=== PATIENT | male | born 1980 | race Caucasian/White ===

== ENCOUNTER → 2020-08-26 | Outpatient (CLI) | payer SELFPAY ==
[2020-08-26 12:39] LABS: Basophils % (A) 1 %; Eosinophils # (A) 0.1 k/uL (0-0.7); Eosinophils % (A) 1 %; HCT 34.8 % (39.0-53.0); HGB 11.7 gm/dL (13.0-17.5); Lymphocytes # (A) 0.9 k/uL (1.0-4.8); Lymphocytes % (A) 23 %; MCH 32.6 pg (25.0-35.0); MCHC 33.6 g/dL (31.0-37.0); MCV 96.8 fL (80.0-100.0); Mean Platelet Volume 8.5; Monocytes # (A) 0.4 k/uL (0-1.0); Monocytes % (A) 10 %; Neutrophils # (A) 2.6 k/uL (1.3-7.7); Neutrophils % (A) 63 %; RBC 3.59 m/uL (4.30-5.90); RDW 12.6 % (11.5-15.5); WBC 4.1 k/uL (3.8-10.6)
[2020-08-26 13:24] LABS: Platelet Count 67 k/uL (150-450)
[2020-08-26 13:25] LABS: Anisocytosis (M) Present; Poikilocytosis (M) Present
[2020-08-26 13:47] LABS: Erythrocyte Sedimentation Rate 35 mm/hr (0-15)
[2020-08-26 15:14] LABS: ALT 60 U/L (4-49); AST 122 U/L (17-59); African American GFR (CKD) >90 (>60 ml/min/1.73 sqM); Albumin 4.3 g/dL (3.5-5.0); Albumin/Globulin Ratio 1.1; Alkaline Phosphatase 90 U/L (38-126); Anion Gap 8 mmol/L; Blood Urea Nitrogen 10 mg/dL (9-20); C Reactive Protein <5.0 mg/L (<10.0); Carbon Dioxide 27 mmol/L (22-30); Chloride 98 mmol/L (98-107); Globulin 3.8 g/dL; Glucose 107 mg/dL (74-99); Non-African American GFR(CKD) >90 (>60 ml/min/1.73 sqM); Potassium 4.6 mmol/L (3.5-5.1); Sodium 133 mmol/L (137-145); Total Bilirubin 0.7 mg/dL (0.2-1.3); Total Protein 8.1 g/dL (6.3-8.2)
[2020-08-26 19:03] LABS: Rheumatoid Factor, Qnt 18 IU/mL (0-15)
[2020-08-26 21:05] LABS: Total Protein,CSF 56 mg/dL (12-60)
[2020-08-26 21:39] LABS: Appearance,CSF Clear; CSF Tube Number 4; Nucleated Cells, CSF 2 u/L (0-5); Red Blood Cell,CSF 1 u/L (0-10)
[2020-09-02 08:37] LABS: IgG - CSF 4.4 mg/dL (0.0 - 3.4); IgG/Albumin Index (CSF) 0.53 (0.00 - 0.77)
== END | disposition home or self-care (01) ==
LOC: LABWHC1 11:14
PROVIDERS: ATTEND Psychiatry & Neurology Pain Medicine
DX: G62.9 Polyneuropathy, unspecified (principal); G61.81 Chronic inflammatory demyelinating polyneuritis; G37.9 Demyelinating disease of central nervous system, unspecified
CPT/HCPCS: 36415; 80053; 82040; 82042; 82784; 83873; 83916; 84157; 85025; 85652; 86038; 86140; 86431; 87801; 88108; 89050

== ENCOUNTER → 2021-10-13 | Outpatient (CLI) | payer OTHER ==
--- NOTE | 2021-10-13 12:23 | US ---
EXAMINATION TYPE: US venous doppler duplex LE BI DATE OF EXAM: 10/13/2021 12:01 PM COMPARISON: NONE CLINICAL HISTORY: 41-year-old male M79.89 LEG SWELLING. Bilateral swelling for the past 4 day, more o n the left SIDE PERFORMED: Bilateral TECHNIQUE: The lower extremity deep venous system is examined utilizing real time linear array sonog heather with graded compression, doppler sonography and color-flow sonography. FINDINGS: VESSELS IMAGED: Common Femoral Vein Deep Femoral Vein Greater Saphenous Vein * Femoral Vein Popliteal Vein Small Saphenous Vein * Proximal Calf Veins Posterior tibial veins (* superficial vessels) Right Leg: Negative for DVT Left Leg: Negative for DVT Multimedia Educational Specialist notes: No DVT seen. IMPRESSION: No evidence for DVT within the bilateral lower extremities.
--- NOTE | 2021-10-13 12:42 | XR ---
EXAMINATION TYPE: XR ankle complete LT, XR foot complete LT DATE OF EXAM: 10/13/2021 CLINICAL HISTORY: Swelling TECHNIQUE: Frontal, lateral and oblique images of the left ankle and foot are obtained. COMPARISON: None. FINDINGS: There is no acute fracture/dislocation evident in the left ankle. The ankle mortise appea rs within normal limits. Moderate diffuse subcutaneous edema and soft tissue swelling slightly more p rominent over the lateral malleolus versus medial malleolus is confirmed. There is no acute fracture or dislocation evident in the left foot. Old malunion fracture distal meta diaphysis fifth metatarsal. Joint spaces are maintained. Moderate size inferior calcaneal spur. Mild soft tissue swelling in the foot less prominent than at level of ankle. IMPRESSION: As above.
== END | disposition home or self-care (01) ==
LOC: RADUSWWP 11:14
PROVIDERS: ATTEND Internal Medicine
DX: R60.0 Localized edema (principal); M79.89 Other specified soft tissue disorders; M77.32 Calcaneal spur, left foot
CPT/HCPCS: 93970

== ENCOUNTER 2023-06-16 11:44 | Inpatient (IN) | payer OTHER ==
--- NOTE | 2023-06-16 12:43 | ED ---
Nausea/Vomiting/Diarrhea HPI - General Chief complaint: Nausea/Vomiting/Diarrhea Stated complaint: Vomiting Time Seen by Provider: 06/16/23 12:30 Source: patient, RN notes reviewed Mode of arrival: wheelchair Limitations: no limitations - History of Present Illness Initial comments: 43-year-old male presents emergency Department chief complaint abdominal pain. Patient states patient states that he states has some upper abdominal discomfort, nausea vomiting diarrhea over the last few days. Patient family states he is not eating much the last week he is a known alcoholic and used to drink. He denies any prior liver or pancreatic issues. Denies any melanotic stools. Patient denies any focal weakness he states he just has generalized weakness. - Related Data Allergies Allergy/AdvReac Type Severity Reaction Status Date / Time No Known Allergies Allergy Verified 06/16/23 12:12 Review of Systems ROS Statement: Those systems with pertinent positive or pertinent negative responses have been documented in the HPI. ROS Other: All systems not noted in ROS Statement are negative. Past Medical History Past Medical History: Hypertension Additional Past Medical History / Comment(s): neuropathy Past Surgical History: No Surgical Hx Reported Past Psychological History: No Psychological Hx Reported Past Alcohol Use History: Abuse Past Drug Use History: None Reported General Exam - General Exam Comments Initial Comments: Visual Physical Exam Vital signs reviewed General: Well-appearing, nontoxic, no acute distress. Head: Normocephalic, atraumatic Eyes: PERRLA, EOMI ENT: Airway patent Chest: Nonlabored breathing Skin: No visual rash, normal skin tone Neuro: Alert and oriented 3 Musculoskeletal: No gross abnormalities Limitations: no limitations General appearance: alert, in no apparent distress Head exam: Present: atraumatic, normocephalic, normal inspection Eye exam: Present: normal appearance, PERRL, EOMI. Absent: scleral icterus, conjunctival injection, periorbital swelling ENT exam: Present: normal exam, normal oropharynx, mucous membranes moist Neck exam: Present: normal inspection, full ROM. Absent: tenderness, meningismus, lymphadenopathy Respiratory exam: Present: normal lung sounds bilaterally. Absent: respiratory distress, wheezes, rales, rhonchi, stridor Cardiovascular Exam: Present: normal rhythm, tachycardia, normal heart sounds. Absent: systolic murmur, diastolic murmur, rubs, gallop, clicks GI/Abdominal exam: Present: soft, normal bowel sounds. Absent: distended, tenderness, guarding, rebound, rigid Course Vital Signs 06/16/23 12:10 Temperature 97.8 F Pulse Rate 116 H Respiratory 20 Rate Blood Pressure 133/67 O2 Sat by Pulse 99 Oximetry Medical Decision Making - Medical Decision Making I performed a quick note portion of this chart signed Afshin Kahn PA-C Was pt. sent in by a medical professional or institution (, [facility], [facility], urgent care, hospital, or fpc...) When possible be specific @ -No Did you speak to anyone other than the patient for history (EMS, parent, family, police, friend...)? What history was obtained from this source @ -No Did you review nursing and triage notes (agree or disagree)? Why? @ -I reviewed and agree with nursing and triage notes Were old charts reviewed (outside hosp., previous admission, EMS record, old EKG, old radiological studies, urgent care reports/EKG's, fpc records)? Report findings @ -No old charts were reviewed Differential Diagnosis (chest pain, altered mental status, abdominal pain women, abdominal pain men, vaginal bleeding, weakness, fever, dyspnea, syncope, headache, dizziness, GI bleed, back pain, seizure, CVA, palpatations, mental he alth, musculoskeletal)? @ -Differential Abdominal Pain Men: Appendicitis, cholecystitis, diverticulosis, ischemic bowel, pancreatitis, hepatitis, UTI, gastroenteritis, AAA, incarcerated hernia, bowel obstruction, constipation, inflammatory bowel, hepatitis, peptic ulcer disease, splenic infarction, perforated viscus, testicular torsion, this is not meant to be an all-inclusive list EKG interpreted by me (3pts min.). @ -None X-rays interpreted by me (1pt min.). @ -None done CT interpreted by me (1pt min.). @ -None done U/S interpreted by me (1pt. min.). @ -None done What testing was considered but not performed or refused? (CT, X-rays, U/S, labs)? Why? @ -None What meds were considered but not given or refused? Why? @ -None Did you discuss the management of the patient with other professionals (professionals i.e. , [facility], [facility], lab, RT, psych nurse, social staff worker, township clerk, teacher, geological technical officer, porter sample case)? Give summary @ -Dr. monsivais for consult of hyponatremia she recommended repeat laboratory paloma dies, she was to add urine studies. I discussed case with [facility] for admission Was smoking cessation discussed for >3mins.? @ -No Was critical care preformed (if so, how long)? @ -No Were there social determinants of health that impacted care today? How? (Homelessness, low income, unemployed, alcoholism, drug addiction, transportation, low edu. Level, literacy, decrease access to med. care, [facility], rehab)? @ -No Was there de-escalation of care discussed even if they declined (Discuss DNR or withdrawal of care, Hospice)? DNR status @ -No What co-morbidities impacted this encounter? (DM, HTN, Smoking, COPD, CAD, Cancer, CVA, ARF, Chemo, Hep., AIDS, mental health diagnosis, sleep apnea, morbid obesity)? @ -Alcoholism Was patient admitted / discharged? Hospital course, mention meds given and route, prescriptions, significant lab abnormalities, going to OR and other pertinent info. @ -Admitted patient is found to have significant hyponatremia with sodium of 113. Patient has no neurological deficits he does have denies weakness at this time. Patient states he is a daily beer drinker and patient may have some beer potomania. Patient was given initial normal saline bolus prior to labs or studies, pain is fluids were ordered at 50 mph I did contact nephrology patient will be admitted to medicine with repeat laboratory studies. Undiagnosed new problem with uncertain prognosis? @ -No Drug Therapy requiring intensive monitoring for toxicity (Heparin, Nitro, Insulin, Cardizem)? @ -No Were any procedures done? @ -No Diagnosis/symptom? @ -Hyponatremia, alcohol abuse Acute, or Chronic, or Acute on Chronic? @ -Acute Uncomplicated (without systemic symptoms) or Complicated (systemic symptoms)? @ -Complicated Side effects of treatment? @ -No Exacerbation, Progression, or Severe Exacerbation? @ -No Poses a threat to life or bodily function? How? (Chest pain, USA, ID, pneumonia, PE, COPD, DKA, ARF, appy, cholecystitis, CVA, Diverticulitis, Homicidal, Suicidal, threat to staff... and all critical care pts) @ -Yes patient has severe hyponatremia] - Lab Data Result diagrams: 06/16/23 12:32 06/16/23 13:03 Lab Results 06/16/23 06/16/23 Range/Units 12:32 13:03 WBC 7.3 (3.8-10.6) k/uL RBC 2.69 L (4.30-5.90) m/uL Hgb 8.7 L (13.0-17.5) gm/dL Hct 24.8 L (39.0-53.0) % MCV 92.4 (80.0-100.0) fL MCH 32.2 (25.0-35.0) pg MCHC 34.9 (31.0-37.0) g/dL RDW 12.5 (11.5-15.5) % Plt Count 134 L (150-450) k/uL MPV 9.3 Neutrophils % 82 % Lymphocytes % 8 % Monocytes % 8 % Eosinophils % 2 % Basophils % 0 % Neutrophils # 6.0 (1.3-7.7) k/uL Lymphocytes # 0.6 L (1.0-4.8) k/uL Monocytes # 0.6 (0-1.0) k/uL Eosinophils # 0.1 (0-0.7) k/uL Basophils # 0.0 (0-0.2) k/uL Sodium 113 L* (137-145) mmol/L Potassium 3.7 (3.5-5.1) mmol/L Chloride 80 L (98-107) mmol/L Carbon Dioxide 17 L (22-30) mmol/L Anion Gap 16 mmol/L BUN 11 (9-20) mg/dL Creatinine 0.55 L (0.66-1.25) mg/dL Est GFR (CKD-EPI)AfAm >90 (>60 ml/min/1.73 sqM) Est GFR (CKD-EPI)NonAf >90 (>60 ml/min/1.73 sqM) Glucose 87 (74-99) mg/dL Calcium 7.8 L (8.4-10.2) mg/dL Magnesium 1.8 (1.6-2.3) mg/dL Total Bilirubin 1.5 H (0.2-1.3) mg/dL AST 47 (17-59) U/L ALT 21 (4-49) U/L Alkaline Phosphatase 93 (38-126) U/L Total Protein 6.8 (6.3-8.2) g/dL Albumin 2.9 L (3.5-5.0) g/dL Lipase 241 (23-300) U/L Serum Alcohol 23 mg/dL Disposition Clinical Impression: Hyponatremia Disposition: ADMITTED IP TO THIS HOSP Condition: Serious Referrals: None,Stated [Primary Care Provider] - 1-2 days Time of Disposition: 16:05
[2023-06-16 12:57] LABS: Basophils % (A) 0 %; Eosinophils # (A) 0.1 k/uL (0-0.7); Eosinophils % (A) 2 %; HCT 24.8 % (39.0-53.0); HGB 8.7 gm/dL (13.0-17.5); Lymphocytes # (A) 0.6 k/uL (1.0-4.8); Lymphocytes % (A) 8 %; MCH 32.2 pg (25.0-35.0); MCHC 34.9 g/dL (31.0-37.0); MCV 92.4 fL (80.0-100.0); Mean Platelet Volume 9.3; Monocytes # (A) 0.6 k/uL (0-1.0); Monocytes % (A) 8 %; Neutrophils % (A) 82 %; Platelet Count 134 k/uL (150-450); RBC 2.69 m/uL (4.30-5.90); RDW 12.5 % (11.5-15.5); WBC 7.3 k/uL (3.8-10.6)
[2023-06-16] MEDS ORDERED: SODIUM CHLORIDE 0.9% 1,000 ML IV ONE (14:57)
[2023-06-16] MEDS ORDERED: PANTOPRAZOLE 40 MG/10 ML VIAL IVP STA (14:58)
[2023-06-16] MEDS ORDERED: ONDANSETRON 4 MG/2 ML VIAL IVP STA (14:58)
[2023-06-16 15:29] LABS: ALT 21 U/L (4-49); AST 47 U/L (17-59); African American GFR (CKD) >90 (>60 ml/min/1.73 sqM); Albumin 2.9 g/dL (3.5-5.0); Alcohol 23 mg/dL; Alkaline Phosphatase 93 U/L (38-126); Anion Gap 16 mmol/L; Blood Urea Nitrogen 11 mg/dL (9-20); Calcium 7.8 mg/dL (8.4-10.2); Carbon Dioxide 17 mmol/L (22-30); Chloride 80 mmol/L (98-107); Glucose 87 mg/dL (74-99); Lipase 241 U/L (23-300); Magnesium 1.8 mg/dL (1.6-2.3); Non-African American GFR(CKD) >90 (>60 ml/min/1.73 sqM); Potassium 3.7 mmol/L (3.5-5.1); Total Bilirubin 1.5 mg/dL (0.2-1.3); Total Protein 6.8 g/dL (6.3-8.2)
[2023-06-16 15:33] LABS: Sodium 113 mmol/L (137-145)
[2023-06-16] MEDS ORDERED: LORazepam 2 MG/ML INJ IV PRN ×3 (16:05)
[2023-06-16] MEDS ORDERED: NALOXONE 0.4 MG/ML 1 ML VIAL IV PRN (16:06)
[2023-06-16] MEDS: LORazepam 2 MG/ML INJ IV PRN (17:18)
[2023-06-16] MEDS: SODIUM CHLORIDE 0.9% 1,000 ML IV SCH (17:25)
[2023-06-16 22:02] LABS: African American GFR (CKD) >90 (>60 ml/min/1.73 sqM); Blood Urea Nitrogen 12 mg/dL (9-20); Calcium 7.7 mg/dL (8.4-10.2); Carbon Dioxide 15 mmol/L (22-30); Glucose 87 mg/dL (74-99); Non-African American GFR(CKD) >90 (>60 ml/min/1.73 sqM)
[2023-06-16 22:06] LABS: Anion Gap 17 mmol/L; Chloride 82 mmol/L (98-107)
[2023-06-16 22:12] LABS: Sodium 114 mmol/L (137-145)
[2023-06-17 04:05] LABS: African American GFR (CKD) >90 (>60 ml/min/1.73 sqM); Anion Gap 11 mmol/L; Blood Urea Nitrogen 13 mg/dL (9-20); Calcium 7.4 mg/dL (8.4-10.2); Carbon Dioxide 17 mmol/L (22-30); Chloride 85 mmol/L (98-107); Glucose 80 mg/dL (74-99); Non-African American GFR(CKD) >90 (>60 ml/min/1.73 sqM); Potassium 4.1 mmol/L (3.5-5.1)
[2023-06-17 04:21] LABS: Sodium 113 mmol/L (137-145)
--- NOTE | 2023-06-17 08:13 | P.HPIM ---
History of Present Illness This is a pleasant 43 years old male with past medical history of hypertension, alcohol use disorder. Patient told me he also he has history of neuropathy for 2 years is not walking much, he uses a wheelchair but he continues is also a walker to go around the house. However he let his and almost of daily living activities like shopping. Also reports history of fall about 2 years ago twice with fracture including his ankle. Patient also mentioned he has liver disease and he seemed Dr. Mo before. Presents because of nausea vomiting and diarrhea 4 days as per ED note however pt states he was having diarrhea of one day duration Patient stated that he ask his to bring him to the hospital because he could not eat for 1.5 day. He said also has diarrhea with loose stool, he said he has 2 bowel movements of diarrhea prior to come into the hospital. 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 And he denies liquor or wine consumption No urinary symptoms, no headache dizziness weakness or new numbness. No chest pain dyspnea or coughing. On exam his abdomen significantly distended and has bilateral leg swelling which is not very much pitting Vitals reviewed showing tachycardia with heart rate 112, a trial on the vitals are stable. Labs reviewed, CBC is unremarkable other than anemia with hemoglobin 8.7. Sodium was low on admission 113, then 114 and 113 this morning. Most of BMP and liver enzymes were unremarkable. Bilirubin is 1.5 but AST and ALT are normal range. Serum alcohol Review of Systems Review of systems CONSTITUTIONAL: No fever, no malaise, HEENT: No recent visual problems or hearing problems. Denied any sore throat. CARDIOVASCULAR: No orthopnea, PND, no palpitations, no syncope. PULMONARY: No shortness of breath, no cough, no hemoptysis. GASTROINTESTINAL: no nausea, no vomiting, no abdominal pain. Normoactive bowel sounds. NEUROLOGICAL: No headaches, no weakness, no numbness. HEMATOLOGICAL: Denies any bleeding or petechiae. GENITOURINARY: Denies any burning micturition, frequency, or urgency. MUSCULOSKELETAL/RHEUMATOLOGICAL: Denies any joint pain, swelling, or any muscle pain. ENDOCRINE: Denies any polyuria or polydipsia. Past Medical History Past Medical History: Hypertension Additional Past Medical History / Comment(s): neuropathy Past Surgical History: No Surgical Hx Reported Past Psychological History: No Psychological Hx Reported Past Alcohol Use History: Abuse Past Drug Use History: None Reported Medications and Allergies Home Medications Medication Instructions Recorded Confirmed Type Folic Acid 1 mg PO DAILY 06/16/23 06/16/23 History lisinopriL 40 mg PO DAILY 06/16/23 06/16/23 History prednisoLONE ACETATE 1% OPHTH 1 drop RIGHT EYE DAILY 06/16/23 06/16/23 History [Pred Forte 1%] Allergies Allergy/AdvReac Type Severity Reaction Status Date / Time No Known Allergies Allergy Verified 06/16/23 17:16 Physical Exam Vitals: Vital Signs Temp Pulse Resp BP Pulse Ox 06/17/23 05:00 112 H 19 122/77 06/17/23 04:00 108 H 16 112/81 06/17/23 03:00 113 H 19 119/73 06/17/23 02:00 104 H 16 123/99 95 06/17/23 01:00 96 12 105/54 96 06/17/23 00:00 104 H 17 114/97 06/16/23 23:00 115 H 20 101/75 06/16/23 22:00 101 H 20 101/75 95 06/16/23 21:00 17 101/75 98 06/16/23 20:00 105 H 17 101/75 06/16/23 19:00 112 H 19 101/75 06/16/23 18:00 104 H 17 101/75 06/16/23 17:22 96 18 101/75 100 06/16/23 17:00 103 H 14 06/16/23 16:48 101 H 19 06/16/23 12:10 97.8 F 116 H 20 133/67 99 Intake and Output 06/16/23 06/16/23 06/17/23 14:59 22:59 06:59 Other: Weight 87.543 kg -GENERAL: The patient is alert and oriented x3, not in any acute distress. Well developed, well nourished. Generally weak HEENT: Pupils are round and equally reacting to light. EOMI. No scleral icterus. No conjunctival pallor. Normocephalic, atraumatic. No pharyngeal erythema. No thyromegaly. CARDIOVASCULAR: S1 and S2 present. No murmurs, rubs, or gallops. PULMONARY: Chest is clear to auscultation, no wheezing , no crackles. -ABDOMEN: Soft, nontender, distended, normoactive bowel sounds. No palpable organomegaly. MUSCULOSKELETAL: No joint swelling or deformity. -EXTREMITIES: No cyanosis, clubbing, , bilateral leg edema. NEUROLOGICAL: Gross neurological examination did not reveal any focal deficits. SKIN: No rashes. no petechiae. Results CBC & Chem 7: 06/16/23 12:32 06/17/23 03:30 Labs: Abnormal Lab Results - Last 24 Hours (Table) 06/16/23 06/16/23 06/16/23 Range/Units 12:32 13:03 21:29 RBC 2.69 L (4.30-5.90) m/uL Hgb 8.7 L (13.0-17.5) gm/dL Hct 24.8 L (39.0-53.0) % Plt Count 134 L (150-450) k/uL Lymphocytes # 0.6 L (1.0-4.8) k/uL Sodium 113 L* 114 L* (137-145) mmol/L Chloride 80 L 82 L (98-107) mmol/L Carbon Dioxide 17 L 15 L (22-30) mmol/L Creatinine 0.55 L (0.66-1.25) mg/dL Osmolality 245 L* (280-301) mosm/kg Calcium 7.8 L 7.7 L (8.4-10.2) mg/dL Total Bilirubin 1.5 H (0.2-1.3) mg/dL Albumin 2.9 L (3.5-5.0) g/dL 06/17/23 Range/Units 03:30 RBC (4.30-5.90) m/uL Hgb (13.0-17.5) gm/dL Hct (39.0-53.0) % Plt Count (150-450) k/uL Lymphocytes # (1.0-4.8) k/uL Sodium 113 L* (137-145) mmol/L Chloride 85 L (98-107) mmol/L Carbon Dioxide 17 L (22-30) mmol/L Creatinine 0.57 L (0.66-1.25) mg/dL Osmolality (280-301) mosm/kg Calcium 7.4 L (8.4-10.2) mg/dL Total Bilirubin (0.2-1.3) mg/dL Albumin (3.5-5.0) g/dL Assessment and Plan Assessment: Severe hyponatremia, present on admission Acute gastroenteritis Alcohol use disorder arthroscopic on withdrawal Generalized weakness secondary to above Moderate to severe abdominal distention with bilateral leg swelling suspicious for ascites and fluid overload. Possible history of alcoholic liver disease, and possible cirrhosis. Hypertension Plan: continue with IV fluid hydration normal saline Monitor closely sodium level and correct gradually and slowly, nephrology team already consulted and they followed the patient closely [place] protocol and thiamine Check abdominal ultrasound GI consult Labs and medication were reviewed.. Continue same treatment. Continue with symptomatic treatment. Resume home medication. Monitor labs and vitals. DVT and GI prophylaxis. Further recommendations as per clinical course of the patient DVT prophylaxis: Subcutaneous heparin GI Prophylaxis: Ppi Prognosis is guarded
[2023-06-17] MEDS ORDERED: lisinopriL 20 MG TAB PO SCH (09:00)
--- NOTE | 2023-06-17 09:11 | US ---
EXAMINATION TYPE: US abdomen limited DATE OF EXAM: 06/17/2023 COMPARISON: NONE CLINICAL INDICATION: Male, 43 years old with history of ascites; Patient states he has never had flui d in his abdomen before. All four quadrants scanned with ascites visualized. FINDINGS/IMPRESSION: Moderate volume ascites throughout the abdomen.
[2023-06-17] MEDS: FOLIC ACID 1 MG TAB PO SCH (09:17)
[2023-06-17] MEDS: HEPARIN SODIUM,PORCINE 5,000 UNIT/ML 1 ML VIAL SQ SCH ×2 (09:17→21:25)
[2023-06-17] MEDS: THIAMINE 100 MG TAB PO SCH (09:37)
[2023-06-17] MEDS: prednisoLONE ACETATE 1% OPHTH DROPS 5 ML BTL RIGHT EYE SCH (09:38)
[2023-06-17 10:21] LABS: INR 1.2 (<1.2)
--- NOTE | 2023-06-17 11:09 | US ---
EXAMINATION TYPE: US liver DATE OF EXAM: 06/17/2023 COMPARISON: NONE CLINICAL INDICATION: Male, 43 years old with history of ascites, evaluate for cirrhosis; ascites cirr hosis limited due to fluid. TECHNIQUE: Multiple sonographic images of the right upper quadrant are obtained. FINDINGS: EXAM MEASUREMENTS: Liver Length: 17 cm Gallbladder Wall: .5 cm CBD: .6 cm Right Kidney: 10.1 x 4.3 x 4.0 cm DAIRY SPECIALIST NOTES: Pancreas: Obscured by bowel gas Liver: Increased attenuation Gallbladder: contracted Evidence for sonographic Sands's sign: no CBD: .6 Right Kidney: No hydronephrosis or masses seen Pancreas is obscured by overlying bowel gas. Liver demonstrates a subtle nodular contour with increas ed echogenicity. No focal lesion identified. Gallbladder is contracted without evidence of wall thick ening, cholelithiasis, or pericholecystic fluid. Per psychology teacher, negative sonographic Sands sign. C ommon bile duct at the upper limits of normal. Right kidney is unremarkable without evidence of hydro nephrosis, nephrolithiasis, or solid mass. Ascites demonstrated. IMPRESSION: 1. The liver demonstrates a cirrhotic morphology. 2. Ascites.
--- NOTE | 2023-06-17 12:12 | P.NPCON ---
History of Present Illness - Reason for Consult hyponatremia - History of Present Illness Patient is a 43-year-old male with history of EtOH abuse and hypertension. Patient is admitted to the hospital with history of increased weakness and abdominal distention. Patient has also had vomiting and diarrhea for about 3-4 days. Serum alcohol level of 23 No history of fever or chills No urinary symptoms 4 intake for last 3-4 days. No urinary symptoms Patient's aunt reports history of low sodium of about 5 years ago. Serum sodium was 113 on admission. Currently maintained on normal saline which was initially at 50 mL an hour and sodium had not improved. IV fluids were increased to 100 ML per hour and sodium is up to 117 today. Review of Systems As per HPI. Past Medical History Past Medical History: Hypertension Additional Past Medical History / Comment(s): neuropathy Past Surgical History: No Surgical Hx Reported Past Psychological History: No Psychological Hx Reported Past Alcohol Use History: Abuse Past Drug Use History: None Reported Medications and Allergies Home Medications Medication Instructions Recorded Confirmed Type Folic Acid 1 mg PO DAILY 06/16/23 06/16/23 History lisinopriL 40 mg PO DAILY 06/16/23 06/16/23 History prednisoLONE ACETATE 1% OPHTH 1 drop RIGHT EYE DAILY 06/16/23 06/16/23 History [Pred Forte 1%] Allergies Allergy/AdvReac Type Severity Reaction Status Date / Time No Known Allergies Allergy Verified 06/16/23 17:16 Physical Exam Vitals: Vital Signs Temp Pulse Pulse Resp BP BP Pulse Ox 06/17/23 11:56 97 16 121/82 100 06/17/23 11:41 105 H 16 122/77 99 06/17/23 11:00 104 H 16 128/107 98 06/17/23 05:00 112 H 19 122/77 06/17/23 04:00 108 H 16 112/81 06/17/23 03:00 113 H 19 119/73 06/17/23 02:00 104 H 16 123/99 95 06/17/23 01:00 96 12 105/54 96 06/17/23 00:00 104 H 17 114/97 06/16/23 23:00 115 H 20 101/75 06/16/23 22:00 101 H 20 101/75 95 06/16/23 21:00 17 101/75 98 06/16/23 20:00 105 H 17 101/75 06/16/23 19:00 112 H 19 101/75 06/16/23 18:00 104 H 17 101/75 06/16/23 17:22 96 18 101/75 100 06/16/23 17:00 103 H 14 06/16/23 16:48 101 H 19 06/16/23 12:10 97.8 F 116 H 20 133/67 99 Patient is awake, comfortable, no acute distress Examination of the heart S1 and S2 Examination of the lungs decreased breath sounds at the bases Abdomen is soft distended with ascites Examination of lower extremities shows edema 1+ bilaterally. Patient does not move his legs Results - Lab Results Most recent lab results Calcium 7.4 mg/dL (8.4-10.2) L 06/17/23 03:30 Magnesium 1.8 mg/dL (1.6-2.3) 06/16/23 13:03 06/16/23 12:32 06/17/23 08:32 Assessment and Plan Assessment: 1. Hyponatremia secondary to EtOH abuse. Component of hypovolemic hyponatremia as well. Urine osmolality and urine sodium is currently pending. Continue with normal saline for now. Patient is also encouraged increased intake of protein. 2. EtOH abuse with elevated bilirubin at 1.5 and INR of 1.2 3. Nausea and vomiting likely secondary to gastroenteritis or EtOH abuse 4. Ascites associated with portal hypertension from possible underlying alcoholic liver disease 5. History of neuropathy with bilateral leg weakness Plan: Continue with normal saline Follow-up on urine osmolality and urine sodium Repeat sodium later this afternoon Encouraged increased oral intake Thank you for the consultation. We will continue to follow the patient with you during his hospitalization.
--- NOTE | 2023-06-17 12:33 | US ---
Ultrasound-guided paracentesis. DATE OF EXAM: 06/17/2023 CLINICAL HISTORY: Ascites The procedure was discussed with the patient. The risks, complications, benefits, and alternatives we re discussed and any questions were answered. Informed consent was obtained. The patient was placed s upine on the ultrasound table and prepped and draped in the usual sterile fashion. All elements of maximal barrier technique were utilized. Under ultrasound guidance, access into the right lower quadrant was obtained, via the paracentesis catheter system and direct ultrasound guidanc e. Approximately 4.7 liters of straw-colored fluid was removed. The patient was stable throughout the pr ocedure and remained stable upon discharge from Department of Radiology. IMPRESSION: Successful paracentesis under ultrasound guidance.
--- NOTE | 2023-06-17 12:36 | P.CONS ---
History of Present Illness - Reason for Consult Consult date: 06/17/23 Possible alcoholic liver disease Requesting physician: Schuyler E Sheet - Chief Complaint Nausea, vomiting, diarrhea - History of Present Illness This is a 43-year-old male with a past medical history of alcohol abuse, peripheral neuropathy and hypertension who presented to the emergency department for complaints of nausea vomiting and diarrhea 1 week. He denies any other sick contacts. Denies any abdominal pain. States he's had abdominal distention for the last week or 2. states it has been longer. Also has lower extremity swelling. He had a limited abdominal ultrasound to evaluate for ascites. Moderate amount of ascites noted. Gastroenterology consulted for ascites, possible alcoholic cirrhosis of the liver. Patient states that he has a long-standing history of alcohol abuse. States he drank 8-10 beers a day for last 10-12 years. States lately he has only been drinking 3 beers a day. States he has neuropathy to bilateral feet due to previous accident and broken legs. He denies any black stool or blood in his stool, no hematemesis. Denies any previous knowledge of liver disease. He has been afebrile. Denies any fevers or chills at home. He did have a blood alcohol level on admission of 23. Patient noted to be hyponatremic on admission, with consult to nephrology. Admitting labs WBC 7.3 hemoglobin 8.7 hematocrit 24 platelet count 134,019 or 1.2 sodium 114 potassium 4.0 BUN 12 creatinine 0.6 magnesium 1.8 total bilirubin 1.5 AST 47 AST 21 alkaline phosphatase 93 lipase 241 Review of Systems REVIEW OF SYSTEMS: CARDIOPULMONARY: No chest pain or shortness of breath. Gastrointestinal: No abdominal pain, abdominal distention reported. Nausea vomiting and diarrhea for 1 week duration. No hematemesis, coffee-ground emesis. No rectal bleeding, or melena. GENITOURINARY: No dysuria or hematuria. MUSCULOSKELETAL: Reports normal range of motion., Joint pain to bilateral legs. Peripheral neuropathy. SKIN: No rashes. No jaundice. ENDOCRINE: No chills, fevers. No excessive weight gain or loss. No polydipsia or polyuria. PSYCHIATRIC: Unremarkable. NEUROLOGY: No change in mental status. Denies dizziness, headache. ENT: Vision unremarkable. CONSTITUTIONAL: No recent weight loss. No fever, chills, night sweats. Past Medical History Past Medical History: Hypertension Additional Past Medical History / Comment(s): neuropathy Past Surgical History: No Surgical Hx Reported Past Psychological History: No Psychological Hx Reported Past Alcohol Use History: Abuse Past Drug Use History: None Reported Medications and Allergies Home Medications Medication Instructions Recorded Confirmed Type Folic Acid 1 mg PO DAILY 06/16/23 06/16/23 History lisinopriL 40 mg PO DAILY 06/16/23 06/16/23 History prednisoLONE ACETATE 1% OPHTH 1 drop RIGHT EYE DAILY 06/16/23 06/16/23 History [Pred Forte 1%] Allergies Allergy/AdvReac Type Severity Reaction Status Date / Time No Known Allergies Allergy Verified 06/16/23 17:16 Physical Exam Vitals: Vital Signs Temp Pulse Resp BP Pulse Ox 06/17/23 05:00 112 H 19 122/77 06/17/23 04:00 108 H 16 112/81 06/17/23 03:00 113 H 19 119/73 06/17/23 02:00 104 H 16 123/99 95 06/17/23 01:00 96 12 105/54 96 06/17/23 00:00 104 H 17 114/97 06/16/23 23:00 115 H 20 101/75 06/16/23 22:00 101 H 20 101/75 95 06/16/23 21:00 17 101/75 98 06/16/23 20:00 105 H 17 101/75 06/16/23 19:00 112 H 19 101/75 06/16/23 18:00 104 H 17 101/75 06/16/23 17:22 96 18 101/75 100 06/16/23 17:00 103 H 14 06/16/23 16:48 101 H 19 06/16/23 12:10 97.8 F 116 H 20 133/67 99 General appearance: The patient is alert, oriented, appears in no acute distres s. HET: Head is normocephalic and atraumatic. Conjunctiva pink. Sclera anicteric. Neck: Supple without lymphadenopathy. Trachea midline. Heart: Regular. Lungs: Equal expansion, normal respiratory effort. Abdomen: Abdominal distention/ascites, nontender. No guarding or rigidity. Skin: No rashes. No jaundice. Extremities: Normal skin color and turgor. Lower extremity edema. Neurological: No focal deficits. Alert and oriented x3. Results CBC & Chem 7: 06/16/23 12:32 06/17/23 08:32 Labs: Abnormal Lab Results - Last 24 Hours (Table) 06/16/23 06/16/23 06/16/23 Range/Units 12:32 13:03 21:29 RBC 2.69 L (4.30-5.90) m/uL Hgb 8.7 L (13.0-17.5) gm/dL Hct 24.8 L (39.0-53.0) % Plt Count 134 L (150-450) k/uL Lymphocytes # 0.6 L (1.0-4.8) k/uL Sodium 113 L* 114 L* (137-145) mmol/L Chloride 80 L 82 L (98-107) mmol/L Carbon Dioxide 17 L 15 L (22-30) mmol/L Creatinine 0.55 L (0.66-1.25) mg/dL Osmolality 245 L* (280-301) mosm/kg Calcium 7.8 L 7.7 L (8.4-10.2) mg/dL Total Bilirubin 1.5 H (0.2-1.3) mg/dL Albumin 2.9 L (3.5-5.0) g/dL 06/17/23 06/17/23 Range/Units 03:30 08:32 RBC (4.30-5.90) m/uL Hgb (13.0-17.5) gm/dL Hct (39.0-53.0) % Plt Count (150-450) k/uL Lymphocytes # (1.0-4.8) k/uL Sodium 113 L* 117 L* (137-145) mmol/L Chloride 85 L (98-107) mmol/L Carbon Dioxide 17 L (22-30) mmol/L Creatinine 0.57 L (0.66-1.25) mg/dL Osmolality (280-301) mosm/kg Calcium 7.4 L (8.4-10.2) mg/dL Total Bilirubin (0.2-1.3) mg/dL Albumin (3.5-5.0) g/dL Comments: . Abdominal ultrasound reports moderate amount of ascites Liver ultrasound report liver demonstrates cirrhotic morphology. Ascites. Assessment and Plan (1) Alcoholic cirrhosis of liver with ascites Narrative/Plan: 43-year-old male presenting for nausea vomiting and diarrhea 1 week duration. Patient also noted to have abdominal distention with ascites at least 1-2 weeks reported. Patient has long-standing history of alcohol abuse 8-10 beers daily 10-12 years which reportedly he has cut back to about 3 beers a day. No previous history of known liver disease. Lower extremity swelling as well. Interventional radiology consulted for therapeutic paracentesis with fluid studies. 4.7 L removed. Fluid studies are currently pending. Likely dealing with decompensated alcoholic cirrhosis of the liver. Discuss with patient importance of alcohol abstinence, low-sodium diet, and close follow-up with gastroenterology. Current Visit: Yes Status: Acute Code(s): K70.31 - ALCOHOLIC CIRRHOSIS OF LIVER WITH ASCITES SNOMED Code(s): 023614098 (2) Nausea and vomiting Narrative/Plan: Improved at this time. Unclear etiology. Possible gastroenteritis. Current Visit: Yes Status: Acute Code(s): R11.2 - NAUSEA WITH VOMITING, UNSPECIFIED SNOMED Code(s): 87310677 (3) Diarrhea Current Visit: Yes Status: Acute Code(s): R19.7 - DIARRHEA, UNSPECIFIED SNOMED Code(s): 89595036 (4) Hyponatremia Narrative/Plan: Nephrology following. Continue with their recommendations. Patient will need diuretics at some time likely for ascites and peripheral edema. We'll defer to nephrology. Current Visit: Yes Status: Acute Code(s): E87.1 - HYPO-OSMOLALITY AND HYPONATREMIA SNOMED Code(s): 10143200 Plan: 1. Continue symptomatic and supportive care 2. Diet as tolerated 3. Liver ultrasound ordered 4. Anemia profile ordered 5. Paracentesis ordered, therapeutic and fluid studies 6. Albumin ordered status post paracentesis 7. Daily CBC 8. Discussed with patient and family importance of alcohol abstinence 9. Continue with recommendations from nephrology, will defer diuretics to their service Thank you for this consultation, we will continue to follow. Patient will need outpatient follow-up as well. Dr. Shayla Mo I agree with the dictator's note, documented as a scribe by Dina Sánchez.
[2023-06-17 13:01] LABS: Appearance,Urine Cloudy (Clear); Bacteria,Urine Rare /hpf; Bilirubin,Urine Negative (Negative); Blood,Urine Negative (Negative); Color,Urine Yellow; Glucose,Urine (UA) Trace (Negative); Ketones,Urine 2+ (Negative); Leukocyte Esterase,Urine Trace (Negative); Mucus,Urine Rare /hpf; Nitrite,Urine Negative (Negative); PH, Urine 5.5 (5.0-8.0); Protein,Urine Trace (Negative); RBC,Urine <1 /hpf (0-5); Specific Gravity,Urine 1.018 (1.001-1.035); Squamous Epithelial Cell,Urine 1 /hpf (0-4); WBC,Urine 6 /hpf (0-5)
[2023-06-17] MEDS: ALBUMIN HUMAN 25% 50 ML in EMPTY BAG 1 BAG IVPB SCH ×2 (13:38→14:35)
[2023-06-17] MEDS ORDERED: TOLVAPTAN 15 MG TABLET PO ONE (17:00)
[2023-06-17] MEDS: SODIUM CHLORIDE 0.9% 1,000 ML IV SCH (19:39)
[2023-06-17] MEDS: SODIUM BICARBONATE TAB 650 MG TAB PO SCH (21:25)
[2023-06-17 22:07] LABS: % Iron Saturation 18.75 (15.00-50.00)
[2023-06-18 05:03] LABS: Appearance,BF Slightly Hazy (Clear)
[2023-06-18 05:47] LABS: ALT 18 U/L (4-49); AST 40 U/L (17-59); African American GFR (CKD) >90 (>60 ml/min/1.73 sqM); Albumin 2.5 g/dL (3.5-5.0); Alkaline Phosphatase 71 U/L (38-126); Anion Gap 14 mmol/L; Bilirubin, Conjugated 0.3 mg/dL (0.0-0.3); Bilirubin, Delta 0.8 mg/dL (0.0-0.2); Bilirubin,Unconjugated 0.9 mg/dL (0.0-1.1); Blood Urea Nitrogen 10 mg/dL (9-20); Calcium 7.7 mg/dL (8.4-10.2); Carbon Dioxide 17 mmol/L (22-30); Chloride 86 mmol/L (98-107); Glucose 96 mg/dL (74-99); Magnesium 1.7 mg/dL (1.6-2.3); Non-African American GFR(CKD) >90 (>60 ml/min/1.73 sqM); Potassium 3.4 mmol/L (3.5-5.1); Total Protein 5.8 g/dL (6.3-8.2)
[2023-06-18 06:11] LABS: Sodium 117 mmol/L (137-145)
[2023-06-18 06:56] LABS: HCT 25.4 % (39.0-53.0); HGB 8.6 gm/dL (13.0-17.5); MCH 32.1 pg (25.0-35.0); MCV 94.3 fL (80.0-100.0); Mean Platelet Volume 10.4; Platelet Count 136 k/uL (150-450); RBC 2.69 m/uL (4.30-5.90); RDW 12.9 % (11.5-15.5); WBC 6.8 k/uL (3.8-10.6)
[2023-06-18] MEDS ORDERED: Potassium Replacement Protocol 1 EACH MISC MISCELLANE PRN (07:42)
[2023-06-18] MEDS ORDERED: SODIUM CHLORIDE TAB 1 GM TAB PO STA ×2 (07:51→20:18)
[2023-06-18 08:16] LABS: T. Protein, Body Fluid Source Ascities; Total Protein, Body Fluid >3600 mg/dL
[2023-06-18 08:20] LABS: Albumin, Fluid Source Ascities
[2023-06-18] MEDS: THIAMINE 100 MG TAB PO SCH ×2 (08:39→10:01)
[2023-06-18] MEDS: POTASSIUM CHLORIDE ER 20 MEQ TAB.ER PO SCH ×3 (08:39→08:46)
[2023-06-18] MEDS: HEPARIN SODIUM,PORCINE 5,000 UNIT/ML 1 ML VIAL SQ SCH ×2 (08:39→20:48)
[2023-06-18] MEDS: FOLIC ACID 1 MG TAB PO SCH ×2 (08:39→10:01)
[2023-06-18] MEDS: SODIUM BICARBONATE TAB 650 MG TAB PO SCH ×3 (08:39→20:48)
[2023-06-18] MEDS ORDERED: POTASSIUM BICARBONATE/CIT AC 20 MEQ TABLET.EFF PO ONE (08:44)
[2023-06-18] MEDS: ONDANSETRON 4 MG/2 ML VIAL IVP PRN (08:48)
[2023-06-18 09:21] LABS: Band Neutrophils % 1 %; Lymphocytes # (M) 0.48 k/uL (1.0-4.8); Monocytes # (M) 0.41 k/uL (0-1.0); Neutrophils % (M) 86 %; Nucleated Red Blood Cells 0 /100 WBC (0-0); Total Cells Counted 100
[2023-06-18 09:27] LABS: RBC Morphology Normal
[2023-06-18] MEDS ORDERED: TOLVAPTAN 15 MG TABLET PO ONE (10:00)
[2023-06-18] MEDS: prednisoLONE ACETATE 1% OPHTH DROPS 5 ML BTL RIGHT EYE SCH (10:01)
--- NOTE | 2023-06-18 11:06 | P.PN ---
Subjective Patient is seen for follow-up for hyponatremia. Serum sodium initially improved with saline however then worsened and drop back down to 113 from 117. In the meantime urine osmolality came back high at 513 and IV fluids were discontinued. Patient received a dose of Samsca last night and sodium was up to 117 again. Blood pressure remains on the lower side with systolic 109-1 40 mmHg. Strong history of EtOH abuse. Complaining of nausea today after taking potassium chloride tab. Objective - Vital Signs Vital signs: Vital Signs Temp 97.4 F L 06/18/23 07:56 Pulse 113 H 06/18/23 07:56 Resp 16 06/18/23 07:56 BP 114/74 06/18/23 07:56 Pulse Ox 98 06/18/23 07:56 FiO2 Intake & Output 06/17/23 06/18/23 06/18/23 18:59 06:59 18:59 Intake Total 10 Output Total 50 Balance -40 Intake: IV 10 Invasive Line 1 10 Output: Emesis 50 Other: Voiding Method Toilet - Exam Patient is awake, comfortable, no acute distress Examination of the heart S1 and S2 Examination of the lungs decreased breath sounds at the bases Abdomen is soft distended with ascites Examination of lower extremities shows edema 1+ bilaterally. Patient does not move his legs - Labs CBC & Chem 7: 06/18/23 04:51 06/18/23 09:56 Labs: Abnormal Lab Results - Last 24 Hours (Table) 06/17/23 06/17/23 06/17/23 Range/Units 03:30 03:30 11:33 RBC (4.30-5.90) m/uL Hgb (13.0-17.5) gm/dL Hct (39.0-53.0) % Plt Count (150-450) k/uL Lymphocytes # (Manual) (1.0-4.8) k/uL Sodium (137-145) mmol/L Potassium (3.5-5.1) mmol/L Chloride (98-107) mmol/L Carbon Dioxide (22-30) mmol/L Creatinine (0.66-1.25) mg/dL Calcium (8.4-10.2) mg/dL Iron 33 L (65-175) UG/DL TIBC 176 L (228-460) UG/DL Transferrin 126.0 L (204.0-354.0) mg/dL Ferritin 671.0 H (22.0-322.0) ng/mL Total Bilirubin (0.2-1.3) mg/dL Delta Bilirubin (0.0-0.2) mg/dL Total Protein (6.3-8.2) g/dL Albumin (3.5-5.0) g/dL Urine Protein (Negative) Urine Glucose (UA) (Negative) Urine Ketones (Negative) Ur Leukocyte Esterase (Negative) Urine WBC (0-5) /hpf Urine Bacteria (None) /hpf Urine Mucus (None) /hpf Ur Random Sodium <20 L (40-220) mmol/L Fluid Appearance (Clear) 06/17/23 06/17/23 06/17/23 Range/Units 11:36 11:37 13:31 RBC (4.30-5.90) m/uL Hgb (13.0-17.5) gm/dL Hct (39.0-53.0) % Plt Count (150-450) k/uL Lymphocytes # (Manual) (1.0-4.8) k/uL Sodium 114 L* (137-145) mmol/L Potassium (3.5-5.1) mmol/L Chloride (98-107) mmol/L Carbon Dioxide (22-30) mmol/L Creatinine (0.66-1.25) mg/dL Calcium (8.4-10.2) mg/dL Iron (65-175) UG/DL TIBC (228-460) UG/DL Transferrin (204.0-354.0) mg/dL Ferritin (22.0-322.0) ng/mL Total Bilirubin (0.2-1.3) mg/dL Delta Bilirubin (0.0-0.2) mg/dL Total Protein (6.3-8.2) g/dL Albumin (3.5-5.0) g/dL Urine Protein Trace H (Negative) Urine Glucose (UA) Trace H (Negative) Urine Ketones 2+ H (Negative) Ur Leukocyte Esterase Trace H (Negative) Urine WBC 6 H (0-5) /hpf Urine Bacteria Rare H (None) /hpf Urine Mucus Rare H (None) /hpf Ur Random Sodium (40-220) mmol/L Fluid Appearance Slightly Hazy A (Clear) 06/17/23 06/17/23 06/18/23 Range/Units 20:03 23:49 04:51 RBC 2.69 L (4.30-5.90) m/uL Hgb 8.6 L (13.0-17.5) gm/dL Hct 25.4 L (39.0-53.0) % Plt Count 136 L (150-450) k/uL Lymphocytes # (Manual) 0.48 L (1.0-4.8) k/uL Sodium 115 L* 117 L* (137-145) mmol/L Potassium (3.5-5.1) mmol/L Chloride (98-107) mmol/L Carbon Dioxide (22-30) mmol/L Creatinine (0.66-1.25) mg/dL Calcium (8.4-10.2) mg/dL Iron (65-175) UG/DL TIBC (228-460) UG/DL Transferrin (204.0-354.0) mg/dL Ferritin (22.0-322.0) ng/mL Total Bilirubin (0.2-1.3) mg/dL Delta Bilirubin (0.0-0.2) mg/dL Total Protein (6.3-8.2) g/dL Albumin (3.5-5.0) g/dL Urine Protein (Negative) Urine Glucose (UA) (Negative) Urine Ketones (Negative) Ur Leukocyte Esterase (Negative) Urine WBC (0-5) /hpf Urine Bacteria (None) /hpf Urine Mucus (None) /hpf Ur Random Sodium (40-220) mmol/L Fluid Appearance (Clear) 06/18/23 06/18/23 Range/Units 04:51 09:56 RBC (4.30-5.90) m/uL Hgb (13.0-17.5) gm/dL Hct (39.0-53.0) % Plt Count (150-450) k/uL Lymphocytes # (Manual) (1.0-4.8) k/uL Sodium 117 L* 118 L* (137-145) mmol/L Potassium 3.4 L (3.5-5.1) mmol/L Chloride 86 L (98-107) mmol/L Carbon Dioxide 17 L (22-30) mmol/L Creatinine 0.54 L (0.66-1.25) mg/dL Calcium 7.7 L (8.4-10.2) mg/dL Iron (65-175) UG/DL TIBC (228-460) UG/DL Transferrin (204.0-354.0) mg/dL Ferritin (22.0-322.0) ng/mL Total Bilirubin 2.0 H (0.2-1.3) mg/dL Delta Bilirubin 0.8 H (0.0-0.2) mg/dL Total Protein 5.8 L (6.3-8.2) g/dL Albumin 2.5 L (3.5-5.0) g/dL Urine Protein (Negative) Urine Glucose (UA) (Negative) Urine Ketones (Negative) Ur Leukocyte Esterase (Negative) Urine WBC (0-5) /hpf Urine Bacteria (None) /hpf Urine Mucus (None) /hpf Ur Random Sodium (40-220) mmol/L Fluid Appearance (Clear) Assessment and Plan Assessment: 1. Hyponatremia secondary to EtOH abuse. Component of hypovolemic hyponatremia initially which improved with saline administration. Subsequently serum sodium dropped back to 113 and IV fluids were discontinued. Status post 1 dose of Samsca yesterday and another dose today. Sodium has improved to 118. Patient is also encouraged increased intake of protein. 2. EtOH abuse with elevated bilirubin at 1.5 and INR of 1.2 3. Nausea and vomiting likely secondary to gastroenteritis or EtOH abuse 4. Ascites associated with portal hypertension from possible underlying alcoholic liver disease 5. History of neuropathy with bilateral leg weakness 6. Non-gap metabolic acidosis associated with diarrhea, maintained on oral sodium bicarb 7. Anemia rule out iron deficiency Plan: Continue off of IV fluids Repeat another dose of sodium chloride tabs later on today depending on serum sodium. Avoid excessive sodium intake due to underlying liver cirrhosis and ascites. Continue with sodium bicarb tab for metabolic acidosis Repeat sodium later this afternoon Encouraged increased oral intake
[2023-06-18 12:36] LABS: ALT 16 U/L (4-49); AST 35 U/L (17-59); African American GFR (CKD) >90 (>60 ml/min/1.73 sqM); Albumin 2.5 g/dL (3.5-5.0); Alkaline Phosphatase 64 U/L (38-126); Anion Gap 15 mmol/L; Blood Urea Nitrogen 12 mg/dL (9-20); Calcium 7.5 mg/dL (8.4-10.2); Carbon Dioxide 16 mmol/L (22-30); Chloride 87 mmol/L (98-107); Glucose 96 mg/dL (74-99); Non-African American GFR(CKD) >90 (>60 ml/min/1.73 sqM); Potassium 3.6 mmol/L (3.5-5.1); Total Bilirubin 1.7 mg/dL (0.2-1.3); Total Protein 5.5 g/dL (6.3-8.2)
[2023-06-18 12:37] LABS: Sodium 118 mmol/L (137-145)
--- NOTE | 2023-06-18 12:43 | P.PN ---
Subjective Progress Note Date: 06/18/23 Principal diagnosis: New-onset ascites This is a 43-year-old male with a past medical history of alcohol abuse, peripheral neuropathy and hypertension who presented to the emergency department for complaints of nausea vomiting and diarrhea 1 week. He denies any other sick contacts. Denies any abdominal pain. States he's had abdominal distention for the last week or 2. states it has been longer. Also has lower extremity swelling. He had a limited abdominal ultrasound to evaluate for ascites. Moderate amount of ascites noted. Gastroenterology consulted for asc ites, possible alcoholic cirrhosis of the liver. Patient states that he has a long-standing history of alcohol abuse. States he drank 8-10 beers a day for last 10-12 years. States lately he has only been drinking 3 beers a day. States he has neuropathy to bilateral feet due to previous accident and broken legs. He denies any black stool or blood in his stool, no hematemesis. Denies any previous knowledge of liver disease. He has been afebrile. Denies any fevers or chills at home. He did have a blood alcohol level on admission of 23. Patient noted to be hyponatremic on admission, with consult to nephrology. Admitting labs WBC 7.3 hemoglobin 8.7 hematocrit 24 platelet count 134,019 or 1.2 sodium 114 potassium 4.0 BUN 12 creatinine 0.6 magnesium 1.8 total bilirubin 1.5 AST 47 AST 21 alkaline phosphatase 93 lipase 241 06/18/2023 Patient seen and examined today as a follow-up. Yesterday he underwent paracentesis with 4. holding on diuretics at this time due to hyponatremia. Patient states he has no abdominal pain, does have some nausea but no vomiting. No diarrhea. Objective - Vital Signs Vital signs: Vital Signs Temp 97.7 F 06/18/23 11:44 Pulse 110 H 06/18/23 11:44 Resp 18 06/18/23 11:44 BP 105/70 06/18/23 11:44 Pulse Ox 99 06/18/23 11:44 FiO2 Intake & Output 06/17/23 06/18/23 06/18/23 18:59 06:59 18:59 Intake Total 10 Output Total 50 Balance -40 Intake: IV 10 Invasive Line 1 10 Output: Emesis 50 Other: Voiding Method Toilet - Exam General appearance: The patient is alert, oriented, appears in no acute distress. HET: Head is normocephalic and atraumatic. Conjunctiva pink. Sclera anicteric. Neck: Supple without lymphadenopathy. Abdomen: Soft, nontender, ascites. No guarding or rigidity. Extremities: Normal skin color and turgor. No pedal edema Skin: No rashes, no jaundice Neurological: No focal deficits. Alert and oriented. - Labs CBC & Chem 7: 06/18/23 04:51 06/18/23 09:56 Labs: Abnormal Lab Results - Last 24 Hours (Table) 06/17/23 06/17/23 06/17/23 Range/Units 03:30 03:30 11:33 RBC (4.30-5.90) m/uL Hgb (13.0-17.5) gm/dL Hct (39.0-53.0) % Plt Count (150-450) k/uL Lymphocytes # (Manual) (1.0-4.8) k/uL Sodium (137-145) mmol/L Potassium (3.5-5.1) mmol/L Chloride (98-107) mmol/L Carbon Dioxide (22-30) mmol/L Creatinine (0.66-1.25) mg/dL Calcium (8.4-10.2) mg/dL Iron 33 L (65-175) UG/DL TIBC 176 L (228-460) UG/DL Transferrin 126.0 L (204.0-354.0) mg/dL Ferritin 671.0 H (22.0-322.0) ng/mL Total Bilirubin (0.2-1.3) mg/dL Delta Bilirubin (0.0-0.2) mg/dL Total Protein (6.3-8.2) g/dL Albumin (3.5-5.0) g/dL Urine Protein (Negative) Urine Glucose (UA) (Negative) Urine Ketones (Negative) Ur Leukocyte Esterase (Negative) Urine WBC (0-5) /hpf Urine Bacteria (None) /hpf Urine Mucus (None) /hpf Ur Random Sodium <20 L (40-220) mmol/L Fluid Appearance (Clear) 06/17/23 06/17/23 06/17/23 Range/Units 11:36 11:37 13:31 RBC (4.30-5.90) m/uL Hgb (13.0-17.5) gm/dL Hct (39.0-53.0) % Plt Count (150-450) k/uL Lymphocytes # (Manual) (1.0-4.8) k/uL Sodium 114 L* (137-145) mmol/L Potassium (3.5-5.1) mmol/L Chloride (98-107) mmol/L Carbon Dioxide (22-30) mmol/L Creatinine (0.66-1.25) mg/dL Calcium (8.4-10.2) mg/dL Iron (65-175) UG/DL TIBC (228-460) UG/DL Transferrin (204.0-354.0) mg/dL Ferritin (22.0-322.0) ng/mL Total Bilirubin (0.2-1.3) mg/dL Delta Bilirubin (0.0-0.2) mg/dL Total Protein (6.3-8.2) g/dL Albumin (3.5-5.0) g/dL Urine Protein Trace H (Negative) Urine Glucose (UA) Trace H (Negative) Urine Ketones 2+ H (Negative) Ur Leukocyte Esterase Trace H (Negative) Urine WBC 6 H (0-5) /hpf Urine Bacteria Rare H (None) /hpf Urine Mucus Rare H (None) /hpf Ur Random Sodium (40-220) mmol/L Fluid Appearance Slightly Hazy A (Clear) 06/17/23 06/17/23 06/18/23 Range/Units 20:03 23:49 04:51 RBC 2.69 L (4.30-5.90) m/uL Hgb 8.6 L (13.0-17.5) gm/dL Hct 25.4 L (39.0-53.0) % Plt Count 136 L (150-450) k/uL Lymphocytes # (Manual) 0.48 L (1.0-4.8) k/uL Sodium 115 L* 117 L* (137-145) mmol/L Potassium (3.5-5.1) mmol/L Chloride (98-107) mmol/L Carbon Dioxide (22-30) mmol/L Creatinine (0.66-1.25) mg/dL Calcium (8.4-10.2) mg/dL Iron (65-175) UG/DL TIBC (228-460) UG/DL Transferrin (204.0-354.0) mg/dL Ferritin (22.0-322.0) ng/mL Total Bilirubin (0.2-1.3) mg/dL Delta Bilirubin (0.0-0.2) mg/dL Total Protein (6.3-8.2) g/dL Albumin (3.5-5.0) g/dL Urine Protein (Negative) Urine Glucose (UA) (Negative) Urine Ketones (Negative) Ur Leukocyte Esterase (Negative) Urine WBC (0-5) /hpf Urine Bacteria (None) /hpf Urine Mucus (None) /hpf Ur Random Sodium (40-220) mmol/L Fluid Appearance (Clear) 06/18/23 06/18/23 Range/Units 04:51 09:56 RBC (4.30-5.90) m/uL Hgb (13.0-17.5) gm/dL Hct (39.0-53.0) % Plt Count (150-450) k/uL Lymphocytes # (Manual) (1.0-4.8) k/uL Sodium 117 L* 118 L* (137-145) mmol/L Potassium 3.4 L (3.5-5.1) mmol/L Chloride 86 L (98-107) mmol/L Carbon Dioxide 17 L (22-30) mmol/L Creatinine 0.54 L (0.66-1.25) mg/dL Calcium 7.7 L (8.4-10.2) mg/dL Iron (65-175) UG/DL TIBC (228-460) UG/DL Transferrin (204.0-354.0) mg/dL Ferritin (22.0-322.0) ng/mL Total Bilirubin 2.0 H (0.2-1.3) mg/dL Delta Bilirubin 0.8 H (0.0-0.2) mg/dL Total Protein 5.8 L (6.3-8.2) g/dL Albumin 2.5 L (3.5-5.0) g/dL Urine Protein (Negative) Urine Glucose (UA) (Negative) Urine Ketones (Negative) Ur Leukocyte Esterase (Negative) Urine WBC (0-5) /hpf Urine Bacteria (None) /hpf Urine Mucus (None) /hpf Ur Random Sodium (40-220) mmol/L Fluid Appearance (Clear) Assessment and Plan (1) Alcoholic cirrhosis of liver with ascites Narrative/Plan: 43-year-old male presenting for nausea vomiting and diarrhea 1 week duration. Patient also noted to have abdominal distention with ascites at least 1-2 weeks reported. Patient has long-standing history of alcohol abuse 8-10 beers daily 10-12 years which reportedly he has cut back to about 3 beers a day. No previous history of known liver disease. Lower extremity swelling as well. Interventional radiology consulted for therapeutic paracentesis with fluid studies. 4.7 L removed. Fluid studies are currently pending. Likely dealing with decompensated alcoholic cirrhosis of the liver. Discuss with patient importance of alcohol abstinence, low-sodium diet, and close follow-up with gastroenterology. Paracentesis with fluid studies currently pending. Likely portal hypertension from underlying cirrhosis. Recommend diuretics however will defer to nephrology as patient hyponatremic. Current Visit: Yes Status: Acute Code(s): K70.31 - ALCOHOLIC CIRRHOSIS OF LIVER WITH ASCITES SNOMED Code(s): 895458158 (2) Nausea and vomiting Narrative/Plan: Improved at this time. Unclear etiology. Possible gastroenteritis. Current Visit: Yes Status: Acute Code(s): R11.2 - NAUSEA WITH VOMITING, UNSPECIFIED SNOMED Code(s): 52022450 (3) Diarrhea Current Visit: Yes Status: Acute Code(s): R19.7 - DIARRHEA, UNSPECIFIED SNOMED Code(s): 77652785 (4) Hyponatremia Narrative/Plan: Nephrology following. Continue with their recommendations. Patient will need diuretics at some time likely for ascites and peripheral edema. We'll defer to nephrology. Current Visit: Yes Status: Acute Code(s): E87.1 - HYPO-OSMOLALITY AND HYPONATREMIA SNOMED Code(s): 02583564 Plan: 1. Continue symptomatic and supportive care 2. Diet as tolerated, low sodium 3. Liver ultrasound ordered and reviewed 4. Anemia profile ordered 5. Paracentesis completed, fluid studies pending 6. Albumin ordered status post paracentesis 7. Daily CBC 8. Discussed with patient and family importance of alcohol abstinence 9. Continue with recommendations from nephrology, will defer diuretics to their service Thank you for allowing us to participate in the care of the patient, the GI service will sign off, gastroenterology will not be available at the hospital this weekend and through next week. If further evaluation by gastroenterology is required the patient will need transfer as per the primary team's discretion. Dr. Shayla Mo I agree with the dictator's note, documented as a scribe by Dina Sánchez.
[2023-06-18] MEDS: LORazepam 2 MG/ML INJ IV PRN (15:23)
[2023-06-18 17:44] LABS: African American GFR (CKD) >90 (>60 ml/min/1.73 sqM); Anion Gap 11 mmol/L; Blood Urea Nitrogen 12 mg/dL (9-20); Calcium 7.7 mg/dL (8.4-10.2); Carbon Dioxide 20 mmol/L (22-30); Chloride 86 mmol/L (98-107); Glucose 87 mg/dL (74-99); Non-African American GFR(CKD) >90 (>60 ml/min/1.73 sqM); Potassium 3.5 mmol/L (3.5-5.1)
[2023-06-18 17:45] LABS: Sodium 117 mmol/L (137-145)
[2023-06-19 02:37] LABS: African American GFR (CKD) >90 (>60 ml/min/1.73 sqM); Anion Gap 9 mmol/L; Blood Urea Nitrogen 13 mg/dL (9-20); Calcium 7.4 mg/dL (8.4-10.2); Carbon Dioxide 20 mmol/L (22-30); Chloride 88 mmol/L (98-107); Glucose 86 mg/dL (74-99); Non-African American GFR(CKD) >90 (>60 ml/min/1.73 sqM); Potassium 3.5 mmol/L (3.5-5.1)
[2023-06-19 03:21] LABS: Sodium 117 mmol/L (137-145)
[2023-06-19] MEDS ORDERED: SODIUM CHLORIDE 3%(HYPERTONIC) 500 ML IV ONE (08:27)
--- NOTE | 2023-06-19 10:08 | P.PN ---
Subjective Progress Note Date: 06/18/23 43 years old male with past medical history of hypertension, alcohol use disorder. Patient told me he also he has history of neuropathy for 2 years is not walking much, he uses a wheelchair but he continues is also a walker to go around the house. However he let his and almost of daily living activities like shopping. Also reports history of fall about 2 years ago twice with fracture including his ankle. Patient also mentioned he has liver disease and he seemed Dr. Mo before. Presents because of nausea vomiting and diarrhea 4 days as per ED note however pt states he was having diarrhea of one day duration Patient stated that he ask his to bring him to the hospital because he coul d not eat for 1.5 day. He said also has diarrhea with loose stool, he said he has 2 bowel movements of diarrhea prior to come into the hospital. 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 And he denies liquor or wine consumption No urinary symptoms, no headache dizziness weakness or new numbness. No chest p ain dyspnea or coughing. On exam his abdomen significantly distended and has bilateral leg swelling which is not very much pitting Vitals reviewed showing tachycardia with heart rate 112, a trial on the vitals are stable. Labs reviewed, CBC is unremarkable other than anemia with hemoglobin 8.7. Sodium was low on admission 113, then 114 and 113 this morning. Most of BMP and liver enzymes were unremarkable. Bilirubin is 1.5 but AST and ALT are normal range. Objective - Vital Signs Vital signs: Vital Signs Temp 97.4 F L 06/18/23 07:56 Pulse 113 H 06/18/23 07:56 Resp 16 06/18/23 07:56 BP 114/74 06/18/23 07:56 Pulse Ox 98 06/18/23 07:56 FiO2 Intake & Output 06/17/23 06/18/23 06/18/23 18:59 06:59 18:59 Intake Total 10 Output Total 50 Balance -40 Intake: IV 10 Invasive Line 1 10 Output: Emesis 50 Other: Voiding Method Toilet - Exam -GENERAL: The patient is alert and oriented x3, not in any acute distress. Well developed, well nourished. Generally weak HEENT: Pupils are round and equally reacting to light. EOMI. No scleral icterus. No conjunctival pallor. Normocephalic, atraumatic. No pharyngeal erythema. No thyromegaly. CARDIOVASCULAR: S1 and S2 present. No murmurs, rubs, or gallops. PULMONARY: Chest is clear to auscultation, no wheezing , no crackles. -ABDOMEN: Soft, nontender, distended, normoactive bowel sounds. No palpable organomegaly. MUSCULOSKELETAL: No joint swelling or deformity. -EXTREMITIES: No cyanosis, clubbing, , bilateral leg edema. NEUROLOGICAL: Gross neurological examination did not reveal any focal deficits. SKIN: No rashes. no petechiae. - Labs CBC & Chem 7: 06/18/23 04:51 06/19/23 08:13 Labs: Abnormal Lab Results - Last 24 Hours (Table) 06/17/23 06/17/23 06/17/23 Range/Units 03:30 03:30 11:33 RBC (4.30-5.90) m/uL Hgb (13.0-17.5) gm/dL Hct (39.0-53.0) % Plt Count (150-450) k/uL Lymphocytes # (Manual) (1.0-4.8) k/uL Sodium (137-145) mmol/L Potassium (3.5-5.1) mmol/L Chloride (98-107) mmol/L Carbon Dioxide (22-30) mmol/L Creatinine (0.66-1.25) mg/dL Calcium (8.4-10.2) mg/dL Iron 33 L (65-175) UG/DL TIBC 176 L (228-460) UG/DL Transferrin 126.0 L (204.0-354.0) mg/dL Ferritin 671.0 H (22.0-322.0) ng/mL Total Bilirubin (0.2-1.3) mg/dL Delta Bilirubin (0.0-0.2) mg/dL Total Protein (6.3-8.2) g/dL Albumin (3.5-5.0) g/dL Urine Protein (Negative) Urine Glucose (UA) (Negative) Urine Ketones (Negative) Ur Leukocyte Esterase (Negative) Urine WBC (0-5) /hpf Urine Bacteria (None) /hpf Urine Mucus (None) /hpf Ur Random Sodium <20 L (40-220) mmol/L Fluid Appearance (Clear) 06/17/23 06/17/23 06/17/23 Range/Units 11:36 11:37 13:31 RBC (4.30-5.90) m/uL Hgb (13.0-17.5) gm/dL Hct (39.0-53.0) % Plt Count (150-450) k/uL Lymphocytes # (Manual) (1.0-4.8) k/uL Sodium 114 L* (137-145) mmol/L Potassium (3.5-5.1) mmol/L Chloride (98-107) mmol/L Carbon Dioxide (22-30) mmol/L Creatinine (0.66-1.25) mg/dL Calcium (8.4-10.2) mg/dL Iron (65-175) UG/DL TIBC (228-460) UG/DL Transferrin (204.0-354.0) mg/dL Ferritin (22.0-322.0) ng/mL Total Bilirubin (0.2-1.3) mg/dL Delta Bilirubin (0.0-0.2) mg/dL Total Protein (6.3-8.2) g/dL Albumin (3.5-5.0) g/dL Urine Protein Trace H (Negative) Urine Glucose (UA) Trace H (Negative) Urine Ketones 2+ H (Negative) Ur Leukocyte Esterase Trace H (Negative) Urine WBC 6 H (0-5) /hpf Urine Bacteria Rare H (None) /hpf Urine Mucus Rare H (None) /hpf Ur Random Sodium (40-220) mmol/L Fluid Appearance Slightly Hazy A (Clear) 06/17/23 06/17/23 06/18/23 Range/Units 20:03 23:49 04:51 RBC 2.69 L (4.30-5.90) m/uL Hgb 8.6 L (13.0-17.5) gm/dL Hct 25.4 L (39.0-53.0) % Plt Count 136 L (150-450) k/uL Lymphocytes # (Manual) 0.48 L (1.0-4.8) k/uL Sodium 115 L* 117 L* (137-145) mmol/L Potassium (3.5-5.1) mmol/L Chloride (98-107) mmol/L Carbon Dioxide (22-30) mmol/L Creatinine (0.66-1.25) mg/dL Calcium (8.4-10.2) mg/dL Iron (65-175) UG/DL TIBC (228-460) UG/DL Transferrin (204.0-354.0) mg/dL Ferritin (22.0-322.0) ng/mL Total Bilirubin (0.2-1.3) mg/dL Delta Bilirubin (0.0-0.2) mg/dL Total Protein (6.3-8.2) g/dL Albumin (3.5-5.0) g/dL Urine Protein (Negative) Urine Glucose (UA) (Negative) Urine Ketones (Negative) Ur Leukocyte Esterase (Negative) Urine WBC (0-5) /hpf Urine Bacteria (None) /hpf Urine Mucus (None) /hpf Ur Random Sodium (40-220) mmol/L Fluid Appearance (Clear) 06/18/23 Range/Units 04:51 RBC (4.30-5.90) m/uL Hgb (13.0-17.5) gm/dL Hct (39.0-53.0) % Plt Count (150-450) k/uL Lymphocytes # (Manual) (1.0-4.8) k/uL Sodium 117 L* (137-145) mmol/L Potassium 3.4 L (3.5-5.1) mmol/L Chloride 86 L (98-107) mmol/L Carbon Dioxide 17 L (22-30) mmol/L Creatinine 0.54 L (0.66-1.25) mg/dL Calcium 7.7 L (8.4-10.2) mg/dL Iron (65-175) UG/DL TIBC (228-460) UG/DL Transferrin (204.0-354.0) mg/dL Ferritin (22.0-322.0) ng/mL Total Bilirubin 2.0 H (0.2-1.3) mg/dL Delta Bilirubin 0.8 H (0.0-0.2) mg/dL Total Protein 5.8 L (6.3-8.2) g/dL Albumin 2.5 L (3.5-5.0) g/dL Urine Protein (Negative) Urine Glucose (UA) (Negative) Urine Ketones (Negative) Ur Leukocyte Esterase (Negative) Urine WBC (0-5) /hpf Urine Bacteria (None) /hpf Urine Mucus (None) /hpf Ur Random Sodium (40-220) mmol/L Fluid Appearance (Clear) Assessment and Plan Assessment: Severe hyponatremia, present on admission Acute gastroenteritis Alcohol use disorder/ pending withdrawal Generalized weakness secondary to above Moderate to severe abdominal distention with bilateral leg swelling suspicious for ascites and fluid overload. Possible history of alcoholic liver disease, and possible cirrhosis. Hypertension Plan: continue with IV fluid hydration normal saline Monitor closely sodium level and correct gradually and slowly, nephrology team already consulted and they followed the patient closely [facility] protocol and thiamine Check abdominal ultrasound GI consult Labs and medication were reviewed.. Continue same treatment. Continue with symptomatic treatment. Resume home medication. Monitor labs and vitals. DVT and GI prophylaxis. Further recommendations as per clinical course of the patient DVT prophylaxis: Subcutaneous heparin GI Prophylaxis: Ppi
[2023-06-19] MEDS: THIAMINE 100 MG TAB PO SCH (10:34)
[2023-06-19] MEDS: SODIUM BICARBONATE TAB 650 MG TAB PO SCH ×2 (10:34→20:33)
[2023-06-19] MEDS: FOLIC ACID 1 MG TAB PO SCH (10:34)
[2023-06-19] MEDS: HEPARIN SODIUM,PORCINE 5,000 UNIT/ML 1 ML VIAL SQ SCH ×2 (10:35→20:33)
[2023-06-19] MEDS: prednisoLONE ACETATE 1% OPHTH DROPS 5 ML BTL RIGHT EYE SCH (10:35)
[2023-06-19 11:16] LABS: African American GFR (CKD) >90 (>60 ml/min/1.73 sqM); Anion Gap 10 mmol/L; Blood Urea Nitrogen 12 mg/dL (9-20); Calcium 7.8 mg/dL (8.4-10.2); Carbon Dioxide 22 mmol/L (22-30); Chloride 92 mmol/L (98-107); Glucose 87 mg/dL (74-99); Non-African American GFR(CKD) >90 (>60 ml/min/1.73 sqM); Potassium 3.8 mmol/L (3.5-5.1); Sodium 124 mmol/L (137-145)
[2023-06-19 11:21] LABS: Basophils % (A) 0 %; Eosinophils % (A) 1 %; HCT 23.7 % (39.0-53.0); HGB 8.1 gm/dL (13.0-17.5); Lymphocytes # (A) 0.6 k/uL (1.0-4.8); Lymphocytes % (A) 14 %; MCV 94.2 fL (80.0-100.0); Mean Platelet Volume 9.4; Monocytes # (A) 0.7 k/uL (0-1.0); Monocytes % (A) 17 %; Neutrophils # (A) 2.9 k/uL (1.3-7.7); Neutrophils % (A) 66 %; Platelet Count 124 k/uL (150-450); RBC 2.51 m/uL (4.30-5.90); RDW 13.1 % (11.5-15.5); WBC 4.4 k/uL (3.8-10.6)
--- NOTE | 2023-06-19 12:02 | P.CNPUL ---
History of Present Illness Consult date: 06/19/23 Requesting physician: Schuyler Ferro Chief complaint: Hyponatremia. History of present illness: Pulmonary consult dated 06/19/2023. 43-year-old male who presented to the emergency department on June 16, with severe abdominal pain. The patient has also been complaining of nausea, vomiting, and diarrhea, over the last few days prior to admission. In addition, the patient has not been eating or drinking very much, but has been drinking alcohol on the regular infrequent basis. The patient was seen in the emergency department, and admitted with a diagnosis of severe hyponatremia. His admission sodium was 113. He was initially admitted to the floor, seen by nephrology. Despite aggressive attempts, to increase the patient's sodium, apparently the comfort filler, was called last night at 4:30 in the morning, and the decision was made to transfer the patient to the intensive care unit, for 3% saline. The p chaitanya rolled into the ICU this morning at 7:30, and I was never notified about the admission. The patient had not yet been started on 3% saline. This morning sodium was up to 121. The patient was not having any acute neurological issues, or changes in his mental status, to justify the transfer to the intensive care unit. I did speak to the on-call comfort filler this morning. Currently, the pa tash's on room air, and not receiving any IV fluids. White count is 4.4, hemoglobin is 8.1, hematocrit 23.7, and platelet count 124,000. Sodium 124, potassium 3.8, chlorides 92, CO2 22, BUN 12, and creatinine 0.6. The patient did have a large volume paracentesis abdominis, done by interventional radiology on June 17, where 4.7 L of fluid was removed. Review of Systems REVIEW OF SYSTEMS: CONSTITUTIONAL: [Negative.] NEUROLOGIC: [ Negative.] HEENT: [ Negative.] CARDIAC: [Negative.] PULMONARY: [Negative.] GI: Abdominal pain, nausea, vomiting, diarrhea. : [Negative.] RHEUMATOLOGIC: [ Negative.] IMMUNOLOGIC: [ Negative.] ENDOCRINE: [Negative. ] DERMATOLOGIC: [Negative.] Past Medical History Past Medical History: Hypertension Additional Past Medical History / Comment(s): neuropathy Past Surgical History: No Surgical Hx Reported Past Psychological History: No Psychological Hx Reported Past Alcohol Use History: Abuse Past Drug Use History: None Reported Medications and Allergies Home Medications Medication Instructions Recorded Confirmed Type Folic Acid 1 mg PO DAILY 06/16/23 06/16/23 History lisinopriL 40 mg PO DAILY 06/16/23 06/16/23 History prednisoLONE ACETATE 1% OPHTH 1 drop RIGHT EYE DAILY 06/16/23 06/16/23 History [Pred Forte 1%] Allergies Allergy/AdvReac Type Severity Reaction Status Date / Time No Known Allergies Allergy Verified 06/16/23 17:16 Physical Exam Osteopathic Statement: *. No significant issues noted on an osteopathic structural exam other than those noted in the History and Physical/Consult. Vitals: Vital Signs Temp Pulse Pulse Resp BP BP Pulse Ox 06/19/23 10:00 99 16 98/70 100 06/19/23 09:00 98.1 F 109 H 14 98/62 100 06/19/23 04:00 98.0 F 107 H 16 110/69 99 06/19/23 00:00 98.3 F 94 16 116/59 98 06/18/23 20:00 98.3 F 114 H 16 99/64 99 06/18/23 16:00 98.1 F 111 H 16 120/81 99 Intake and Output 06/18/23 06/19/23 06/19/23 22:59 06:59 14:59 Intake Total 20 Output Total 200 300 0 Balance -180 -300 0 Intake: IV 20 Invasive Line 1 20 Output: Urine 200 300 0 Other: Voiding Method Diaper External Catheter External Catheter # Voids 1 3 No acute distress, oriented 3. Currently on room air. No respiratory distress. HEENT examination is grossly unremarkable. Mucous membranes are moist. No oral lesions. Neck supple. Full range of motion. No adenopathy thyromegaly or neck vein distention. Cardiovascular examination reveals regular rhythm rate. S1-S2 normal. No S3 or S4. No discernible murmur noted. Heart rate 99 bpm. Lungs reveal clear breath sounds. Breath sounds are equal bilaterally. No adventitious lung sounds including wheezes rhonchi or crackles. Room air saturations 100%. Abdomen soft bowel sounds are heard. No masses or tenderness. Extremities are intact. No cyanosis clubbing or edema. Skin is without rash or lesion. Neurologic examination is brief but nonfocal. Results - Laboratory Findings CBC and BMP: 06/19/23 10:44 06/19/23 10:44 PT/INR, D-dimer PT 12.0 sec (9.0-12.0) 06/17/23 09:57 INR 1.2 (<1.2) H 06/17/23 09:57 Abnormal lab findings: Abnormal Labs 06/16/23 06/16/23 06/16/23 12:32 13:03 21:29 RBC 2.69 L Hgb 8.7 L Hct 24.8 L Plt Count 134 L Lymphocytes # 0.6 L Lymphocytes # (Manual) INR Sodium 113 L* 114 L* Potassium Chloride 80 L 82 L Carbon Dioxide 17 L 15 L Creatinine 0.55 L Osmolality 245 L* Calcium 7.8 L 7.7 L Iron TIBC Transferrin Ferritin Total Bilirubin 1.5 H Delta Bilirubin Total Protein Albumin 2.9 L Urine Protein Urine Glucose (UA) Urine Ketones Ur Leukocyte Esterase Urine WBC Urine Bacteria Urine Mucus Ur Random Sodium Fluid Appearance 06/17/23 06/17/23 06/17/23 03:30 03:30 03:30 RBC Hgb Hct Plt Count Lymphocytes # Lymphocytes # (Manual) INR Sodium 113 L* Potassium Chloride 85 L Carbon Dioxide 17 L Creatinine 0.57 L Osmolality Calcium 7.4 L Iron 33 L TIBC 176 L Transferrin 126.0 L Ferritin 671.0 H Total Bilirubin Delta Bilirubin Total Protein Albumin Urine Protein Urine Glucose (UA) Urine Ketones Ur Leukocyte Esterase Urine WBC Urine Bacteria Urine Mucus Ur Random Sodium Fluid Appearance 06/17/23 06/17/23 06/17/23 08:32 09:57 11:33 RBC Hgb Hct Plt Count Lymphocytes # Lymphocytes # (Manual) INR 1.2 H Sodium 117 L* Potassium Chloride Carbon Dioxide Creatinine Osmolality Calcium Iron TIBC Transferrin Ferritin Total Bilirubin Delta Bilirubin Total Protein Albumin Urine Protein Urine Glucose (UA) Urine Ketones Ur Leukocyte Esterase Urine WBC Urine Bacteria Urine Mucus Ur Random Sodium <20 L Fluid Appearance 06/17/23 06/17/23 06/17/23 11:36 11:37 13:31 RBC Hgb Hct Plt Count Lymphocytes # Lymphocytes # (Manual) INR Sodium 114 L* Potassium Chloride Carbon Dioxide Creatinine Osmolality Calcium Iron TIBC Transferrin Ferritin Total Bilirubin Delta Bilirubin Total Protein Albumin Urine Protein Trace H Urine Glucose (UA) Trace H Urine Ketones 2+ H Ur Leukocyte Esterase Trace H Urine WBC 6 H Urine Bacteria Rare H Urine Mucus Rare H Ur Random Sodium Fluid Appearance Slightly Hazy A 06/17/23 06/17/23 06/18/23 20:03 23:49 04:51 RBC 2.69 L Hgb 8.6 L Hct 25.4 L Plt Count 136 L Lymphocytes # Lymphocytes # (Manual) 0.48 L INR Sodium 115 L* 117 L* Potassium Chloride Carbon Dioxide Creatinine Osmolality Calcium Iron TIBC Transferrin Ferritin Total Bilirubin Delta Bilirubin Total Protein Albumin Urine Protein Urine Glucose (UA) Urine Ketones Ur Leukocyte Esterase Urine WBC Urine Bacteria Urine Mucus Ur Random Sodium Fluid Appearance 06/18/23 06/18/23 06/18/23 04:51 09:56 11:23 RBC Hgb Hct Plt Count Lymphocytes # Lymphocytes # (Manual) INR Sodium 117 L* 118 L* 118 L* Potassium 3.4 L Chloride 86 L 87 L Carbon Dioxide 17 L 16 L Creatinine 0.54 L 0.59 L Osmolality Calcium 7.7 L 7.5 L Iron TIBC Transferrin Ferritin Total Bilirubin 2.0 H 1.7 H Delta Bilirubin 0.8 H Total Protein 5.8 L 5.5 L Albumin 2.5 L 2.5 L Urine Protein Urine Glucose (UA) Urine Ketones Ur Leukocyte Esterase Urine WBC Urine Bacteria Urine Mucus Ur Random Sodium Fluid Appearance 06/18/23 06/19/23 06/19/23 15:47 01:11 08:13 RBC Hgb Hct Plt Count Lymphocytes # Lymphocytes # (Manual) INR Sodium 117 L* 117 L* 121 L Potassium Chloride 86 L 88 L Carbon Dioxide 20 L 20 L Creatinine 0.61 L 0.60 L Osmolality Calcium 7.7 L 7.4 L Iron TIBC Transferrin Ferritin Total Bilirubin Delta Bilirubin Total Protein Albumin Urine Protein Urine Glucose (UA) Urine Ketones Ur Leukocyte Esterase Urine WBC Urine Bacteria Urine Mucus Ur Random Sodium Fluid Appearance 06/19/23 06/19/23 10:44 10:44 RBC 2.51 L Hgb 8.1 L Hct 23.7 L Plt Count 124 L Lymphocytes # Lymphocytes # (Manual) INR Sodium 124 L Potassium Chloride 92 L Carbon Dioxide Creatinine 0.60 L Osmolality Calcium 7.8 L Iron TIBC Transferrin Ferritin Total Bilirubin Delta Bilirubin Total Protein Albumin Urine Protein Urine Glucose (UA) Urine Ketones Ur Leukocyte Esterase Urine WBC Urine Bacteria Urine Mucus Ur Random Sodium Fluid Appearance - Diagnostic Findings Chest x-ray: image reviewed Assessment and Plan Assessment: Severe hyponatremia, improved. History of chronic alcohol abuse. Abdominal ascites, status post paracentesis abdominis, June 17. Probable alcoholic liver disease. History of hypertension. History of neuropathy. Plan: Plan dated 06/19/2023. The patient was seen today in room 263. The patient's on room air, and not receiving any IV fluids. The repeat sodium was 124, up from 121. Admission s odium was 113. The patient had a large volume paracentesis, on June 17. The patient was admitted to the hospital on June 16. For unclear reasons, and no change in the patient's clinical status, the patient was transferred down early this morning to the intensive care unit. In my opinion this was completely unnecessary. I was never informed or notified of the transfer. I did speak to the on-call comfort filler. He was the one to order the 3%, not knowing the patient, and not previously seeing the patient. Again, there was no change in the patient's clinical status, and the sodium was stable at 117-118. Time with Patient: Greater than 30
[2023-06-19 12:03] LABS: Poikilocytosis (M) Present
[2023-06-19] MEDS ORDERED: TOLVAPTAN 15 MG TABLET PO ONE (15:06)
--- NOTE | 2023-06-19 15:16 | P.PN ---
Subjective Progress Note Date: 06/19/23 Follow-up for hyponatremia. Overnight transfer to ICU for refractory hyponatremia with a sodium of 117. Sodium improved this morning to 124. In the last 24 hour sodium improved from 117 to 124, change of 7. Denies any nausea vomiting diarrhea. Family at bedside Objective - Vital Signs Vital signs: Vital Signs Temp 98.0 F 06/19/23 12:00 Pulse 103 H 06/19/23 14:00 Resp 12 06/19/23 14:00 BP 104/72 06/19/23 14:00 Pulse Ox 100 06/19/23 14:00 FiO2 Intake & Output 06/18/23 06/19/23 06/19/23 18:59 06:59 18:59 Intake Total 20 10 300 Output Total 250 300 700 Balance -230 -290 -400 Intake: IV 20 10 Invasive Line 1 20 10 Oral 300 Output: Urine 200 300 700 Emesis 50 Other: Voiding Method Toilet External Catheter External Catheter Urinal # Voids 1 3 - Exam No acute distress S1-S2 heard Lungs clear No edema - Labs CBC & Chem 7: 06/19/23 10:44 06/19/23 10:44 Labs: Abnormal Lab Results - Last 24 Hours (Table) 06/18/23 06/19/23 06/19/23 Range/Units 15:47 01:11 08:13 RBC (4.30-5.90) m/uL Hgb (13.0-17.5) gm/dL Hct (39.0-53.0) % Plt Count (150-450) k/uL Lymphocytes # (1.0-4.8) k/uL Sodium 117 L* 117 L* 121 L (137-145) mmol/L Chloride 86 L 88 L (98-107) mmol/L Carbon Dioxide 20 L 20 L (22-30) mmol/L Creatinine 0.61 L 0.60 L (0.66-1.25) mg/dL Calcium 7.7 L 7.4 L (8.4-10.2) mg/dL 06/19/23 06/19/23 Range/Units 10:44 10:44 RBC 2.51 L (4.30-5.90) m/uL Hgb 8.1 L (13.0-17.5) gm/dL Hct 23.7 L (39.0-53.0) % Plt Count 124 L (150-450) k/uL Lymphocytes # 0.6 L (1.0-4.8) k/uL Sodium 124 L (137-145) mmol/L Chloride 92 L (98-107) mmol/L Carbon Dioxide (22-30) mmol/L Creatinine 0.60 L (0.66-1.25) mg/dL Calcium 7.8 L (8.4-10.2) mg/dL Assessment and Plan Assessment: #1 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 #2 chronic liver disease secondary to alcohol #3 anemia multifactorial #4 EtOH abuse with hyperbilirubinemia Plan: #1 sodium improving. Goal sodium of 130 by tomorrow morning. #2 Samsca 15 milligrams once today. #3. He percent not needed at this time. #4 patient can be transferred to general medical floor
[2023-06-20 08:32] LABS: Basophils % (A) 0 %; Eosinophils # (A) 0.1 k/uL (0-0.7); Eosinophils % (A) 1 %; HCT 23.4 % (39.0-53.0); HGB 7.7 gm/dL (13.0-17.5); Lymphocytes # (A) 0.7 k/uL (1.0-4.8); Lymphocytes % (A) 17 %; MCH 31.9 pg (25.0-35.0); MCHC 33.1 g/dL (31.0-37.0); MCV 96.5 fL (80.0-100.0); Mean Platelet Volume 8.9; Monocytes # (A) 0.6 k/uL (0-1.0); Monocytes % (A) 14 %; Neutrophils # (A) 2.9 k/uL (1.3-7.7); Neutrophils % (A) 66 %; Platelet Count 137 k/uL (150-450); RBC 2.43 m/uL (4.30-5.90); RDW 12.9 % (11.5-15.5); WBC 4.3 k/uL (3.8-10.6)
--- NOTE | 2023-06-20 08:37 | P.PN ---
Subjective Progress Note Date: 06/19/23 43 years old male with past medical history of hypertension, alcohol use disorder. Patient told me he also he has history of neuropathy for 2 years is not walking much, he uses a wheelchair but he continues is also a walker to go around the house. However he let his and almost of daily living activities like shopping. Also reports history of fall about 2 years ago twice with fracture including his ankle. Patient also mentioned he has liver disease and he seemed Dr. Mo before. Presents because of nausea vomiting and diarrhea 4 days as per ED note however pt states he was having diarrhea of one day duration Patient stated that he ask his to bring him to the hospital because he coul d not eat for 1.5 day. He said also has diarrhea with loose stool, he said he has 2 bowel movements of diarrhea prior to come into the hospital. 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 And he denies liquor or wine consumption No urinary symptoms, no headache dizziness weakness or new numbness. No chest p ain dyspnea or coughing. On exam his abdomen significantly distended and has bilateral leg swelling which is not very much pitting Vitals reviewed showing tachycardia with heart rate 112, a trial on the vitals are stable. Labs reviewed, CBC is unremarkable other than anemia with hemoglobin 8.7. Sodium was low on admission 113, then 114 and 113 this morning. Most of BMP and liver enzymes were unremarkable. Bilirubin is 1.5 but AST and ALT are normal range. 06/19/2023 Patient is seen and evaluated in room at bedside in ICU; patient was transferred to ICU early in the morning due to worsening hyponatremia; patient was transferred to ICU and was started on 3% saline Vital signs are reviewed and are stable with temperature of 98.1, pulse 99, respirations 16 and blood pressure of 98/70 with O2 saturation of 100% Lab review shows WBC 4.4, hemoglobin 8.1, platelet count of 124, sodium of 124, potassium 3.8, BUN/creatinine of 12/0.6 -- Patient is more awake and alert this morning; nephrology on board and managing hyponatremia Objective - Vital Signs Vital signs: Vital Signs Temp 98.1 F 06/19/23 09:00 Pulse 99 06/19/23 10:00 Resp 16 06/19/23 10:00 BP 98/70 06/19/23 10:00 Pulse Ox 100 06/19/23 10:00 FiO2 Intake & Output 06/18/23 06/19/23 06/19/23 18:59 06:59 18:59 Intake Total 20 10 Output Total 250 300 0 Balance -230 -290 0 Intake: IV 20 10 Invasive Line 1 20 10 Output: Urine 200 300 0 Emesis 50 Other: Voiding Method Toilet External Catheter External Catheter Urinal # Voids 1 3 - Exam -GENERAL: The patient is alert and oriented x3, not in any acute distress. Well developed, well nourished. Generally weak HEENT: Pupils are round and equally reacting to light. EOMI. No scleral icterus. No conjunctival pallor. Normocephalic, atraumatic. No pharyngeal erythema. No thyromegaly. CARDIOVASCULAR: S1 and S2 present. No murmurs, rubs, or gallops. PULMONARY: Chest is clear to auscultation, no wheezing , no crackles. -ABDOMEN: Soft, nontender, distended, normoactive bowel sounds. No palpable organomegaly. MUSCULOSKELETAL: No joint swelling or deformity. -EXTREMITIES: No cyanosis, clubbing, , bilateral leg edema. NEUROLOGICAL: Gross neurological examination did not reveal any focal deficits. SKIN: No rashes. no petechiae. - Labs CBC & Chem 7: 06/20/23 06:55 06/20/23 03:51 Labs: Abnormal Lab Results - Last 24 Hours (Table) 06/18/23 06/18/23 06/18/23 Range/Units 09:56 11:23 15:47 Sodium 118 L* 118 L* 117 L* (137-145) mmol/L Chloride 87 L 86 L (98-107) mmol/L Carbon Dioxide 16 L 20 L (22-30) mmol/L Creatinine 0.59 L 0.61 L (0.66-1.25) mg/dL Calcium 7.5 L 7.7 L (8.4-10.2) mg/dL Total Bilirubin 1.7 H (0.2-1.3) mg/dL Total Protein 5.5 L (6.3-8.2) g/dL Albumin 2.5 L (3.5-5.0) g/dL 06/19/23 06/19/23 Range/Units 01:11 08:13 Sodium 117 L* 121 L (137-145) mmol/L Chloride 88 L (98-107) mmol/L Carbon Dioxide 20 L (22-30) mmol/L Creatinine 0.60 L (0.66-1.25) mg/dL Calcium 7.4 L (8.4-10.2) mg/dL Total Bilirubin (0.2-1.3) mg/dL Total Protein (6.3-8.2) g/dL Albumin (3.5-5.0) g/dL Assessment and Plan Assessment: Severe hyponatremia, present on admission Acute gastroenteritis Alcohol use disorder/ pending withdrawal Generalized weakness secondary to above Moderate to severe abdominal distention with bilateral leg swelling suspicious for ascites and fluid overload. Possible history of alcoholic liver disease, and possible cirrhosis. Hypertension Plan: continue with IV fluid hydration normal saline Monitor closely sodium level and correct gradually and slowly, nephrology team already consulted and they followed the patient closely [facility] protocol and thiamine Check abdominal ultrasound GI consult Labs and medication were reviewed.. Continue same treatment. Continue with symptomatic treatment. Resume home medication. Monitor labs and vitals. DVT and GI prophylaxis. Further recommendations as per clinical course of the patient DVT prophylaxis: Subcutaneous heparin GI Prophylaxis: Ppi
[2023-06-20 08:48] LABS: African American GFR (CKD) >90 (>60 ml/min/1.73 sqM); Anion Gap 10 mmol/L; Blood Urea Nitrogen 12 mg/dL (9-20); Carbon Dioxide 22 mmol/L (22-30); Chloride 94 mmol/L (98-107); Glucose 88 mg/dL (74-99); Non-African American GFR(CKD) >90 (>60 ml/min/1.73 sqM); Potassium 3.8 mmol/L (3.5-5.1); Sodium 126 mmol/L (137-145)
[2023-06-20] MEDS: THIAMINE 100 MG TAB PO SCH (08:57)
[2023-06-20] MEDS: SODIUM BICARBONATE TAB 650 MG TAB PO SCH ×2 (08:57→22:20)
[2023-06-20] MEDS: FOLIC ACID 1 MG TAB PO SCH (08:57)
[2023-06-20] MEDS: HEPARIN SODIUM,PORCINE 5,000 UNIT/ML 1 ML VIAL SQ SCH ×2 (08:58→22:20)
[2023-06-20] MEDS: prednisoLONE ACETATE 1% OPHTH DROPS 5 ML BTL RIGHT EYE SCH (08:58)
--- NOTE | 2023-06-20 14:29 | P.PN ---
Subjective Progress Note Date: 06/20/23 43 years old male with past medical history of hypertension, alcohol use disorder. Patient told me he also he has history of neuropathy for 2 years is not walking much, he uses a wheelchair but he continues is also a walker to go around the house. However he let his and almost of daily living activities like shopping. Also reports history of fall about 2 years ago twice with fracture including his ankle. Patient also mentioned he has liver disease and he seemed Dr. Mo before. Presents because of nausea vomiting and diarrhea 4 days as per ED note however pt states he was having diarrhea of one day duration Patient stated that he ask his to bring him to the hospital because he coul d not eat for 1.5 day. He said also has diarrhea with loose stool, he said he has 2 bowel movements of diarrhea prior to come into the hospital. 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 And he denies liquor or wine consumption No urinary symptoms, no headache dizziness weakness or new numbness. No chest p ain dyspnea or coughing. On exam his abdomen significantly distended and has bilateral leg swelling which is not very much pitting Vitals reviewed showing tachycardia with heart rate 112, a trial on the vitals are stable. Labs reviewed, CBC is unremarkable other than anemia with hemoglobin 8.7. Sodium was low on admission 113, then 114 and 113 this morning. Most of BMP and liver enzymes were unremarkable. Bilirubin is 1.5 but AST and ALT are normal range. 06/19/2023 Patient is seen and evaluated in room at bedside in ICU; patient was transferred to ICU early in the morning due to worsening hyponatremia; patient was transferred to ICU and was started on 3% saline Vital signs are reviewed and are stable with temperature of 98.1, pulse 99, respirations 16 and blood pressure of 98/70 with O2 saturation of 100% Lab review shows WBC 4.4, hemoglobin 8.1, platelet count of 124, sodium of 124, potassium 3.8, BUN/creatinine of 12/0.6 -- Patient is more awake and alert this morning; nephrology on board and managing hyponatremia 06/20/2023 Patient is seen and evaluated with family at bedside; patient denies any specific complaints; family is concerned about nausea and poor oral intake; patient was discussed with nursing staff; patient was able to eat over 60% of breakfast; has been complaining of any nausea Vital signs are reviewed and stable with temperature of 98.1, pulse 100, respiration 20 and blood pressure of 99% on room air Lab review shows sodium of 126, potassium 3.8, BUN/creatinine stable at 12/0.59, WBC 4.3, hemoglobin 7.7, and platelet count of 137 -- Patient remains clinically stable; we will continue to monitor sodium levels closely; nephrology is following for hyponatremia - We will add PT/OT evaluation; discharge planning per PT OT recommendations and 1 sodium levels are stable Objective - Vital Signs Vital signs: Vital Signs Temp 98.7 F 06/20/23 00:22 Pulse 106 H 06/20/23 00:22 Resp 16 06/20/23 00:22 BP 112/69 06/20/23 00:22 Pulse Ox 100 06/20/23 00:22 FiO2 Intake & Output 06/19/23 06/20/23 06/20/23 18:59 06:59 18:59 Intake Total 800 200 Output Total 1300 1450 Balance -500 -1250 Intake: Oral 800 200 Output: Urine 1300 1450 Other: Voiding Method External Catheter External Catheter - Exam -GENERAL: The patient is alert and oriented x3, not in any acute distress. Well developed, well nourished. Generally weak HEENT: Pupils are round and equally reacting to light. EOMI. No scleral icterus. No conjunctival pallor. Normocephalic, atraumatic. No pharyngeal erythema. No thyromegaly. CARDIOVASCULAR: S1 and S2 present. No murmurs, rubs, or gallops. PULMONARY: Chest is clear to auscultation, no wheezing , no crackles. -ABDOMEN: Soft, nontender, distended, normoactive bowel sounds. No palpable organomegaly. MUSCULOSKELETAL: No joint swelling or deformity. -EXTREMITIES: No cyanosis, clubbing, , bilateral leg edema. NEUROLOGICAL: Gross neurological examination did not reveal any focal deficits. SKIN: No rashes. no petechiae. - Labs CBC & Chem 7: 06/20/23 06:55 06/20/23 11:18 Labs: Abnormal Lab Results - Last 24 Hours (Table) 06/19/23 06/19/23 06/19/23 Range/Units 08:13 10:44 10:44 RBC 2.51 L (4.30-5.90) m/uL Hgb 8.1 L (13.0-17.5) gm/dL Hct 23.7 L (39.0-53.0) % Plt Count 124 L (150-450) k/uL Lymphocytes # 0.6 L (1.0-4.8) k/uL Sodium 121 L 124 L (137-145) mmol/L Chloride 92 L (98-107) mmol/L Creatinine 0.60 L (0.66-1.25) mg/dL Calcium 7.8 L (8.4-10.2) mg/dL 06/19/23 06/19/23 06/20/23 Range/Units 16:10 19:22 00:19 RBC (4.30-5.90) m/uL Hgb (13.0-17.5) gm/dL Hct (39.0-53.0) % Plt Count (150-450) k/uL Lymphocytes # (1.0-4.8) k/uL Sodium 123 L 123 L 125 L (137-145) mmol/L Chloride (98-107) mmol/L Creatinine (0.66-1.25) mg/dL Calcium (8.4-10.2) mg/dL 06/20/23 06/20/23 Range/Units 03:51 06:55 RBC 2.43 L (4.30-5.90) m/uL Hgb 7.7 L (13.0-17.5) gm/dL Hct 23.4 L (39.0-53.0) % Plt Count 137 L (150-450) k/uL Lymphocytes # 0.7 L (1.0-4.8) k/uL Sodium 126 L (137-145) mmol/L Chloride (98-107) mmol/L Creatinine (0.66-1.25) mg/dL Calcium (8.4-10.2) mg/dL Assessment and Plan Assessment: Severe hyponatremia, present on admission Acute gastroenteritis Alcohol use disorder/ pending withdrawal Generalized weakness secondary to above Moderate to severe abdominal distention with bilateral leg swelling suspicious for ascites and fluid overload. Possible history of alcoholic liver disease, and possible cirrhosis. Hypertension Plan: continue with IV fluid hydration normal saline Monitor closely sodium level and correct gradually and slowly, nephrology team already consulted and they followed the patient closely WA protocol and thiamine Check abdominal ultrasound GI consult Labs and medication were reviewed.. Continue same treatment. Continue with symptomatic treatment. Resume home medication. Monitor labs and vitals. DVT and GI prophylaxis. Further recommendations as per clinical course of the patient DVT prophylaxis: Subcutaneous heparin GI Prophylaxis: Ppi
[2023-06-20] MEDS ORDERED: TOLVAPTAN 15 MG TABLET PO ONE (14:54)
--- NOTE | 2023-06-20 14:56 | P.PN ---
Subjective Progress Note Date: 06/20/23 Follow-up for hyponatremia. Feels better. Denies any nausea vomiting diarrhea. Sodium improving. Urine output of 2.7 L in the last 24 hours. Objective - Vital Signs Vital signs: Vital Signs Temp 98.1 F 06/20/23 13:36 Pulse 100 06/20/23 13:36 Resp 20 06/20/23 13:36 BP 118/70 06/20/23 08:00 Pulse Ox 99 06/20/23 13:36 FiO2 Intake & Output 06/19/23 06/20/23 06/20/23 18:59 06:59 18:59 Intake Total 800 200 Output Total 1300 1450 Balance -500 -1250 Intake: Oral 800 200 Output: Urine 1300 1450 Other: Voiding Method External Catheter External Catheter External Catheter - Exam No acute distress S1-S2 heard Lungs clear No edema - Labs CBC & Chem 7: 06/20/23 06:55 06/20/23 11:18 Labs: Abnormal Lab Results - Last 24 Hours (Table) 06/19/23 06/19/23 06/20/23 Range/Units 16:10 19:22 00:19 RBC (4.30-5.90) m/uL Hgb (13.0-17.5) gm/dL Hct (39.0-53.0) % Plt Count (150-450) k/uL Lymphocytes # (1.0-4.8) k/uL Sodium 123 L 123 L 125 L (137-145) mmol/L Chloride (98-107) mmol/L Creatinine (0.66-1.25) mg/dL Calcium (8.4-10.2) mg/dL 06/20/23 06/20/23 06/20/23 Range/Units 03:51 06:55 06:55 RBC 2.43 L (4.30-5.90) m/uL Hgb 7.7 L (13.0-17.5) gm/dL Hct 23.4 L (39.0-53.0) % Plt Count 137 L (150-450) k/uL Lymphocytes # 0.7 L (1.0-4.8) k/uL Sodium 126 L 126 L (137-145) mmol/L Chloride 94 L (98-107) mmol/L Creatinine 0.59 L (0.66-1.25) mg/dL Calcium 8.0 L (8.4-10.2) mg/dL 06/20/23 Range/Units 11:18 RBC (4.30-5.90) m/uL Hgb (13.0-17.5) gm/dL Hct (39.0-53.0) % Plt Count (150-450) k/uL Lymphocytes # (1.0-4.8) k/uL Sodium 126 L (137-145) mmol/L Chloride (98-107) mmol/L Creatinine (0.66-1.25) mg/dL Calcium (8.4-10.2) mg/dL Assessment and Plan Assessment: #1 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 #2 chronic liver disease secondary to alcohol #3 anemia multifactorial #4 EtOH abuse with hyperbilirubinemia Plan: #1 sodium improving. Goal sodium of 132 by tomorrow morning. #2 Samsca 15 milligrams once today. #3. Avoid nephrotoxic agents.
[2023-06-20] MEDS ORDERED: TOLVAPTAN 30 MG TABLET PO ONE (15:15)
[2023-06-20] MEDS: ONDANSETRON 4 MG/2 ML VIAL IVP PRN (15:35)
[2023-06-21] MEDS: FOLIC ACID 1 MG TAB PO SCH (08:05)
[2023-06-21] MEDS: THIAMINE 100 MG TAB PO SCH (08:05)
[2023-06-21] MEDS: SODIUM BICARBONATE TAB 650 MG TAB PO SCH ×2 (08:05→21:07)
[2023-06-21] MEDS: HEPARIN SODIUM,PORCINE 5,000 UNIT/ML 1 ML VIAL SQ SCH ×2 (08:05→21:07)
[2023-06-21] MEDS: prednisoLONE ACETATE 1% OPHTH DROPS 5 ML BTL RIGHT EYE SCH (08:05)
[2023-06-21] MEDS ORDERED: Potassium Replacement Protocol 1 EACH MISC MISCELLANE PRN ×2 (08:13→21:06)
[2023-06-21] MEDS ORDERED: Magnesium Replacement Protocol 1 EACH MISC MISCELLANE PRN (08:13)
--- NOTE | 2023-06-21 08:48 | P.PN ---
Subjective Patient is seen in follow-up for hyponatremia. Sodium level gradually improving. Received Samsca yesterday. Oral intake is poor. Nauseated. Vital signs are stable. General: No acute distress. HEENT: Head exam is unremarkable. LUNGS: No audible rhonchi or wheezes. HEART: Rate and Rhythm are regular. ABDOMEN: Nontender. EXTREMITITES: No edema. Objective - Vital Signs Vital signs: Vital Signs Temp 99.0 F 06/21/23 07:48 Pulse 110 H 06/21/23 07:48 Resp 16 06/21/23 07:48 BP 104/69 06/21/23 07:48 Pulse Ox 99 06/21/23 07:48 FiO2 Intake & Output 06/20/23 06/21/23 06/21/23 18:59 06:59 18:59 Intake Total 240 Output Total 600 800 800 Balance -360 -800 -800 Intake: Oral 240 Output: Urine 600 800 800 Other: Voiding Method External Catheter External Catheter # Bowel Movements 2 - Labs CBC & Chem 7: 06/20/23 06:55 06/21/23 03:43 Labs: Abnormal Lab Results - Last 24 Hours (Table) 06/20/23 06/20/23 06/20/23 Range/Units 06:55 11:18 14:26 Sodium 126 L 126 L 126 L (137-145) mmol/L Chloride 94 L (98-107) mmol/L Creatinine 0.59 L (0.66-1.25) mg/dL Calcium 8.0 L (8.4-10.2) mg/dL 06/20/23 06/20/23 06/21/23 Range/Units 19:50 23:14 03:43 Sodium 125 L 125 L 127 L (137-145) mmol/L Chloride (98-107) mmol/L Creatinine (0.66-1.25) mg/dL Calcium (8.4-10.2) mg/dL Assessment and Plan Plan: Assessment: 1. Hyponatremia secondary to beer potomania. Urine sodium less than 20 and urine osmolality 513. Status post Samsca this admission. Sodium level improving. TSH normal. 2. Alcohol abuse. 3. Benign hypertension. Blood pressure currently on the lower side. Plan: Encouraged oral intake. Add 1500 mL fluid restriction. Continue to hold lisinopril. Repeat BMP and magnesium level at noon. Check phosphorus level as well.
[2023-06-21 10:59] LABS: Basophils # (A) 0.01 X 10*3/uL (0.00-0.10); Basophils % (A) 0.2 %; Eosinophils # (A) 0.09 X 10*3/uL (0.04-0.35); Eosinophils % (A) 1.7 %; HCT 21.1 % (39.6-50.0); Lymphocytes # (A) 0.92 X 10*3/uL (0.90-5.00); Lymphocytes % (A) 17.9 %; MCH 30.4 pg (27.0-32.0); MCHC 33.2 d/dL (32.0-37.0); MCV 91.7 FL (80.0-97.0); Mean Platelet Volume 10.6 FL (9.5-12.2); Monocytes # (A) 0.89 X 10*3/uL (0.20-1.00); Monocytes % (A) 17.3 %; NRBC Per 100 WBC 0 X 10*3/uL (0.00-0.01); Neutrophils # (A) 3.17 X 10*3/uL (1.80-7.70); Neutrophils % (A) 61.5 %; Platelet Count 150 X 10*3/uL (140-440); RDW 13.4 % (11.5-14.5); WBC 5.15 X 10*3/uL (4.50-10.00)
[2023-06-21 11:36] LABS: BUN/Creat Ratio 12.86 Ratio (12.00-20.00); Carbon Dioxide 24.5 mmol/L (21.6-31.8); Chloride 95 mmol/L (96-109); Glucose 107 mg/dL (70-110); Potassium 3.4 mmol/L (3.5-5.5); Sodium 128 mmol/L (135-145)
[2023-06-21 12:08] LABS: African American GFR (CKD) >90 (>60 ml/min/1.73 sqM); Anion Gap 9 mmol/L; Blood Urea Nitrogen 10 mg/dL (9-20); Calcium 8.1 mg/dL (8.4-10.2); Carbon Dioxide 25 mmol/L (22-30); Chloride 94 mmol/L (98-107); Glucose 103 mg/dL (74-99); Non-African American GFR(CKD) >90 (>60 ml/min/1.73 sqM); Potassium 3.5 mmol/L (3.5-5.1); Sodium 128 mmol/L (137-145)
[2023-06-21] MEDS: POTASSIUM CHLORIDE ER 20 MEQ TAB.ER PO SCH ×3 (12:14→15:45)
--- NOTE | 2023-06-21 12:51 | P.PN ---
Subjective Progress Note Date: 06/21/23 43 years old male with past medical history of hypertension, alcohol use disorder. Patient told me he also he has history of neuropathy for 2 years is not walking much, he uses a wheelchair but he continues is also a walker to go around the house. However he let his and almost of daily living activities like shopping. Also reports history of fall about 2 years ago twice with fracture including his ankle. Patient also mentioned he has liver disease and he seemed Dr. Mo before. Presents because of nausea vomiting and diarrhea 4 days as per ED note however pt states he was having diarrhea of one day duration Patient stated that he ask his to bring him to the hospital because he could not eat for 1.5 day. He said also has diarrhea with loose stool, he said he has 2 bowel movements of diarrhea prior to come into the hospital. No urinary symptoms, no headache dizziness weakness or new numbness. No chest pain dyspnea or coughing. On exam his abdomen significantly distended and has bilateral leg swelling which is not very much pitting Vitals reviewed showing tachycardia with heart rate 112, a trial on the vitals are stable. Labs reviewed, CBC is unremarkable other than anemia with hemoglobin 8.7. Sodium was low on admission 113, then 114 and 113 this morning. Most of BMP and liver enzymes were unremarkable. Bilirubin is 1.5 but AST and ALT are normal range. 06/19/2023 Patient is seen and evaluated in room at bedside in ICU; patient was transferred to ICU early in the morning due to worsening hyponatremia; patient was transferred to ICU and was started on 3% saline Vital signs are reviewed and are stable with temperature of 98.1, pulse 99, respirations 16 and blood pressure of 98/70 with O2 saturation of 100% Lab review shows WBC 4.4, hemoglobin 8.1, platelet count of 124, sodium of 124, potassium 3.8, BUN/creatinine of 12/0.6 -- Patient is more awake and alert this morning; nephrology on board and managing hyponatremia 06/20/2023 Patient is seen and evaluated with family at bedside; patient denies any spe cific complaints; family is concerned about nausea and poor oral intake; patient was discussed with nursing staff; patient was able to eat over 60% of breakfast; has been complaining of any nausea Vital signs are reviewed and stable with temperature of 98.1, pulse 100, respiration 20 and blood pressure of 99% on room air Lab review shows sodium of 126, potassium 3.8, BUN/creatinine stable at 12/0.59, WBC 4.3, hemoglobin 7.7, and platelet count of 137 -- Patient remains clinically stable; we will continue to monitor sodium levels closely; nephrology is following for hyponatremia - We will add PT/OT evaluation; discharge planning per PT OT recommendations and 1 sodium levels are stable 06/21. Patient seen and examined. at the bedside. Patient is complaining of numbness of lower extremities. Denies any loss of bowel or urinary incontinence. Will check CT head and vitamin B12 and folic acid levels REVIEW OF SYSTEMS: CONSTITUTIONAL: No fever, no malaise,. CARDIOVASCULAR: No chest pain, no palpitations, no syncope. PULMONARY: No shortness of breath, no cough, GASTROINTESTINAL: No diarrhea, no nausea, no vomiting, no abdominal pain. NEUROLOGICAL: No headaches, no weakness, PHYSICAL EXAMINATION: GENERAL: The patient is alert and oriented x3, not in any acute distress. Well developed, well nourished. HEENT: Pupils are round and equally reacting to light. EOMI. No scleral icterus. No conjunctival pallor. Normocephalic, atraumatic. No pharyngeal erythema. No thyromegaly. CARDIOVASCULAR: S1 and S2 present. No murmurs, rubs, or gallops. PULMONARY: Chest is clear to auscultation, no wheezing or crackles. ABDOMEN: Soft, nontender, nondistended, normoactive bowel sounds. No palpable organomegaly. MUSCULOSKELETAL: No joint swelling or deformity. EXTREMITIES: No cyanosis, clubbing, or pedal edema. NEUROLOGICAL: Gross neurological examination did not reveal any focal deficits. SKIN: No rashes. Assessment and plan Severe hyponatremia, present on admission Acute gastroenteritis Alcohol use disorder/ pending withdrawal Generalized weakness secondary to above Moderate to severe abdominal distention with bilateral leg swelling suspicious for ascites and fluid overload. Possible history of alcoholic liver disease, and possible cirrhosis. Hypertension Plan: Monitor vital signs Monitor CBC Encouraged oral intake. Add 1500 mL fluid restriction. Continue to hold lisinopril. CIWA protocol and thiamine Check vitamin B12 and folate levels CT head ordered Nephrology followed Neurology consulted Labs and medication were reviewed.. Continue same treatment. Continue with sy mptomatic treatment. Resume home medication. Monitor labs and vitals. DVT and GI prophylaxis. Further recommendations as per clinical course of the patient Dictation was produced using [employer] dictation software. please excuse any grammatical, word or spelling errors. Objective - Vital Signs Vital signs: Vital Signs Temp 99.0 F 06/21/23 07:48 Pulse 110 H 06/21/23 07:48 Resp 16 06/21/23 07:48 BP 104/69 06/21/23 07:48 Pulse Ox 99 06/21/23 07:48 FiO2 Intake & Output 06/20/23 06/21/23 06/21/23 18:59 06:59 18:59 Intake Total 240 Output Total 600 800 800 Balance -360 -800 -800 Intake: Oral 240 Output: Urine 600 800 800 Other: Voiding Method External Catheter External Catheter # Bowel Movements 2 - Labs CBC & Chem 7: 06/21/23 06:45 06/21/23 11:18 Labs: Abnormal Lab Results - Last 24 Hours (Table) 06/20/23 06/20/23 06/20/23 Range/Units 11:18 14:26 19:50 Sodium 126 L 126 L 125 L (137-145) mmol/L 06/20/23 06/21/23 Range/Units 23:14 03:43 Sodium 125 L 127 L (137-145) mmol/L
--- NOTE | 2023-06-21 13:34 | CT ---
EXAMINATION TYPE: CT brain wo con DATE OF EXAM: 06/21/2023 COMPARISON: None HISTORY: Numbness lower extremities CT DLP: 1144.70 mGycm. Automated Exposure Control for Dose Reduction was Utilized. TECHNIQUE: CT scan of the head is performed without contrast. FINDINGS: There is no acute intracranial hemorrhage, mass effect, or midline shift identified. The moderate generalized degenerative change and hypoattenuation the white matter most typical of remote ischemic white matter change. Abnormal attenuation in the samy could be artifactual. Remote lacunar infarct in the differential diagnosis. The globes are intact and there are changes of chronic sinusit is.. IMPRESSION: 1. No acute intracranial hemorrhage, mass effect, or midline shift is seen. 2. Moderate degenerative and remote ischemic white matter change.
[2023-06-21] MEDS ORDERED: MAGNESIUM SULFATE-D5W PMX 1 GM in DEXTROSE/WATER 1 100ML.BAG IVPB ONE (14:32)
[2023-06-21] MEDS: POTAS-SOD-PHOS 278-164-250 MG 1 EACH PACKET PO SCH ×2 (15:45→21:07)
[2023-06-21] MEDS ORDERED: POTASSIUM CHLORIDE ER 20 MEQ TAB.ER PO STA (20:55)
[2023-06-22 01:26] LABS: % Iron Saturation 11.38 (15.00-50.00)
[2023-06-22] MEDS: FOLIC ACID 1 MG TAB PO SCH (08:46)
[2023-06-22] MEDS: prednisoLONE ACETATE 1% OPHTH DROPS 5 ML BTL RIGHT EYE SCH (08:46)
[2023-06-22] MEDS: SODIUM BICARBONATE TAB 650 MG TAB PO SCH (08:46)
[2023-06-22] MEDS: HEPARIN SODIUM,PORCINE 5,000 UNIT/ML 1 ML VIAL SQ SCH ×2 (08:47→23:03)
[2023-06-22] MEDS: POTAS-SOD-PHOS 278-164-250 MG 1 EACH PACKET PO SCH ×2 (08:47→23:03)
[2023-06-22] MEDS: THIAMINE 100 MG TAB PO SCH (08:47)
--- NOTE | 2023-06-22 09:53 | P.CNNES ---
History of Present Illness Consult date: 06/21/23 Requesting physician: Chidi Taylor Reason for Consult: Bilateral lower extremity weakness and numbness History of Present Illness: Patient is a 43-year-old male with long-standing history of alcoholism, came to the hospital on 06/16/2023 at 11:44 AM Patient's , whom he has been for last 3 years, was also present, who provided with a history. Patient has long-standing history of alcoholism. Patient's mentions that lately prior to arrival, he was throwing up, returning to the bathroom, hardly eating, was very weak. She thought that it was just a possible flu, therefore she ignored it. Patient's mentioned that he has suffered from a slip and fall 3-1/2 years ago, in which he broke his both ankles and the foot. He spent "summer in the bed at that time. He also suffered from a fall on 11/22/2021 when his mother and again a week later. He also suffered from a fall in December 2022 and the most recent occurred a week ago on 06/14/2023. Patient's states that when he is sitting in a car or in his home for a long time, his legs don't want to work, giving out on him. Patient does have developed cirrhosis, and has recently undergone paracentesis in which 4.7 L of ascites was removed. Patient has history of peripheral neuropathy with numbness in his both legs knees down. Denies any symptoms in the upper limbs or hands. He has been to [facility] 2 times in the past and saw a neurologist. They felt that the neuropathy was related to alcoholism and "the damage is already done". He has been using walker for last few years. Usually he holds onto his for the last 3 years that they have been matted together. Patient says that he is to drink 30 peg. Per day years ago. However now he has been drinking 10-12 beers daily, sometimes less. He denies any tobacco use, although he does chew tobacco for a long time. Patient's hepatic ultrasound showed the liver demonstrates a cirrhotic morphology, with ascites. Abdominal ultrasound showed moderate volume ascites throughout the abdomen. CT head showed no acute intracranial hemorrhage, mass effect or midline shift. Moderate degenerative and remote ischemic white matter change. I personally reviewed CT head, agree with the findings. Patient's blood test shows normal WBC, hemoglobin 7.0, elevated MCV 91.7. Patient has severe hyponatremia with sodium 113 on arrival, with low chloride 80 and carbon dioxide 17, renal functions normal, hepatic panel normal with AST 47, ALT 21. TSH normal 1.95. Blood alcohol level on arrival was 23. UA was negative. Review of Systems Constitutional: Reports chills (At home), Denies fever Eyes: denies blurred vision, denies diplopia, denies pain Ears: deny: decreased hearing, ear discharge Ears, nose, mouth and throat: Denies headache, Denies sore throat Cardiovascular: Denies chest pain, Denies shortness of breath Respiratory: Reports cough (since in hospital), Denies excessive sputum Gastrointestinal: Reports diarrhea (1 week before came here), Reports vomiting, Denies abdominal pain, Denies nausea Genitourinary: Denies incontinence, Denies urinary frequency Musculoskeletal: Reports low back pain, Denies myalgias, Denies neck pain Integumentary: Denies pruritus, Denies rash Neurological: Reports as per HPI Psychiatric: Denies anxiety, Denies depression Endocrine: Reports fatigue, Reports weight change Hematologic/Lymphatic: Reports easy bleeding, Reports easy bruising Past Medical History Past Medical History: Hypertension Additional Past Medical History / Comment(s): neuropathy Past Surgical History: No Surgical Hx Reported Past Psychological History: No Psychological Hx Reported Past Alcohol Use History: Abuse Past Drug Use History: None Reported Medications and Allergies Home Medications Medication Instructions Recorded Confirmed Type Folic Acid 1 mg PO DAILY 06/16/23 06/16/23 History lisinopriL 40 mg PO DAILY 06/16/23 06/16/23 History prednisoLONE ACETATE 1% OPHTH 1 drop RIGHT EYE DAILY 06/16/23 06/16/23 History [Pred Forte 1%] Allergies Allergy/AdvReac Type Severity Reaction Status Date / Time No Known Allergies Allergy Verified 06/16/23 17:16 Physical Examination - Vital Signs Vital Signs: Vital Signs Temp Pulse Resp BP Pulse Ox 06/22/23 07:39 98.7 F 108 H 18 119/83 100 06/22/23 01:26 99.4 F 108 H 17 122/87 100 06/21/23 19:27 99.0 F 114 H 17 118/77 98 06/21/23 12:42 97.9 F 103 H 16 116/80 99 Intake and Output 06/21/23 06/22/23 06/22/23 22:59 06:59 14:59 Intake Total 1040 Output Total 450 650 Balance 590 -650 Intake: Other 1040 Output: Urine 450 650 Other: Voiding Method External Catheter Patient is a middle aged male, who appears older than his stated age. He has prominent abdomen from ascites. Patient appears slightly jaundiced/pale. Patient is alert awake oriented to time place and person. Speech and language functions are normal. Patient can name and repeat very well. No aphasia or dysarthria. Attention, concentration and fund of knowledge is adequate. Detail cognitive function testing deferred. On cranial nerve examination, pupils are equal, round and reacting to light, visual [place] are full on confrontation, with no neglect on double simultaneous stimulation. 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 He has mild exotropia of the left eye. He has significant nystagmus looking to the right side. He has a possible very mild right SALAZAR. Face is symmetric, tongue protrudes to the midline. Palatal elevation and sensation normal, hearing is slightly decreased and shoulder shrug normal, facial sensation normal. On muscle strength testing, there is no pronator drift. The muscle strength is (right/left). Upper extremities are completely normal bilaterally. In the lower limbs hip flexion is 4/4+, ankle dorsiflexion 5/5, toe extension 4/4. Deep tendon reflexes are symmetric biceps trace/1+, brachioradialis trace/1, knees trace/1+, ankles 0/0 and plantars are flat bilaterally. Sensory to touch is equal with no neglect on double simultaneous stimulation. Cerebellar function showed no ataxia for [id number] testing. No dy sdiadochokinesia. No ataxia for [id number] testing on either side, although he was extremely slow to perform the task. Tone and bulk of muscles normal. Gait deferred.. On general examination, there is no carotid bruit or murmur, S1-S2 audible. Chest is clear on consultation. Abdomen is soft nontender. No organomegaly, bowel sounds present. Peripheral edema. Patient has multiple bruises, scabs noted over his knees, and porter from falls. Results - Laboratory Findings CBC and BMP: 06/21/23 06:45 06/22/23 06:04 Abnormal Lab Findings: Abnormal Labs 06/16/23 06/16/23 06/16/23 12:32 13:03 21:29 RBC 2.69 L Hgb 8.7 L Hct 24.8 L Plt Count 134 L Lymphocytes # 0.6 L Lymphocytes # (Manual) INR Sodium 113 L* 114 L* Potassium Chloride 80 L 82 L Carbon Dioxide 17 L 15 L Creatinine 0.55 L Glucose Osmolality 245 L* Calcium 7.8 L 7.7 L Phosphorus Iron TIBC % Saturation Transferrin Ferritin Total Bilirubin 1.5 H Delta Bilirubin Total Protein Albumin 2.9 L Vitamin B12 Urine Protein Urine Glucose (UA) Urine Ketones Ur Leukocyte Esterase Urine WBC Urine Bacteria Urine Mucus Ur Random Sodium Fluid Appearance 06/17/23 06/17/23 06/17/23 03:30 03:30 03:30 RBC Hgb Hct Plt Count Lymphocytes # Lymphocytes # (Manual) INR Sodium 113 L* Potassium Chloride 85 L Carbon Dioxide 17 L Creatinine 0.57 L Glucose Osmolality Calcium 7.4 L Phosphorus Iron 33 L TIBC 176 L % Saturation Transferrin 126.0 L Ferritin 671.0 H Total Bilirubin Delta Bilirubin Total Protein Albumin Vitamin B12 Urine Protein Urine Glucose (UA) Urine Ketones Ur Leukocyte Esterase Urine WBC Urine Bacteria Urine Mucus Ur Random Sodium Fluid Appearance 06/17/23 06/17/23 06/17/23 08:32 09:57 11:33 RBC Hgb Hct Plt Count Lymphocytes # Lymphocytes # (Manual) INR 1.2 H Sodium 117 L* Potassium Chloride Carbon Dioxide Creatinine Glucose Osmolality Calcium Phosphorus Iron TIBC % Saturation Transferrin Ferritin Total Bilirubin Delta Bilirubin Total Protein Albumin Vitamin B12 Urine Protein Urine Glucose (UA) Urine Ketones Ur Leukocyte Esterase Urine WBC Urine Bacteria Urine Mucus Ur Random Sodium <20 L Fluid Appearance 06/17/23 06/17/23 06/17/23 11:36 11:37 13:31 RBC Hgb Hct Plt Count Lymphocytes # Lymphocytes # (Manual) INR Sodium 114 L* Potassium Chloride Carbon Dioxide Creatinine Glucose Osmolality Calcium Phosphorus Iron TIBC % Saturation Transferrin Ferritin Total Bilirubin Delta Bilirubin Total Protein Albumin Vitamin B12 Urine Protein Trace H Urine Glucose (UA) Trace H Urine Ketones 2+ H Ur Leukocyte Esterase Trace H Urine WBC 6 H Urine Bacteria Rare H Urine Mucus Rare H Ur Random Sodium Fluid Appearance Slightly Hazy A 06/17/23 06/17/23 06/18/23 20:03 23:49 04:51 RBC 2.69 L Hgb 8.6 L Hct 25.4 L Plt Count 136 L Lymphocytes # Lymphocytes # (Manual) 0.48 L INR Sodium 115 L* 117 L* Potassium Chloride Carbon Dioxide Creatinine Glucose Osmolality Calcium Phosphorus Iron TIBC % Saturation Transferrin Ferritin Total Bilirubin Delta Bilirubin Total Protein Albumin Vitamin B12 Urine Protein Urine Glucose (UA) Urine Ketones Ur Leukocyte Esterase Urine WBC Urine Bacteria Urine Mucus Ur Random Sodium Fluid Appearance 06/18/23 06/18/23 06/18/23 04:51 09:56 11:23 RBC Hgb Hct Plt Count Lymphocytes # Lymphocytes # (Manual) INR Sodium 117 L* 118 L* 118 L* Potassium 3.4 L Chloride 86 L 87 L Carbon Dioxide 17 L 16 L Creatinine 0.54 L 0.59 L Glucose Osmolality Calcium 7.7 L 7.5 L Phosphorus Iron TIBC % Saturation Transferrin Ferritin Total Bilirubin 2.0 H 1.7 H Delta Bilirubin 0.8 H Total Protein 5.8 L 5.5 L Albumin 2.5 L 2.5 L Vitamin B12 Urine Protein Urine Glucose (UA) Urine Ketones Ur Leukocyte Esterase Urine WBC Urine Bacteria Urine Mucus Ur Random Sodium Fluid Appearance 06/18/23 06/19/23 06/19/23 15:47 01:11 08:13 RBC Hgb Hct Plt Count Lymphocytes # Lymphocytes # (Manual) INR Sodium 117 L* 117 L* 121 L Potassium Chloride 86 L 88 L Carbon Dioxide 20 L 20 L Creatinine 0.61 L 0.60 L Glucose Osmolality Calcium 7.7 L 7.4 L Phosphorus Iron TIBC % Saturation Transferrin Ferritin Total Bilirubin Delta Bilirubin Total Protein Albumin Vitamin B12 Urine Protein Urine Glucose (UA) Urine Ketones Ur Leukocyte Esterase Urine WBC Urine Bacteria Urine Mucus Ur Random Sodium Fluid Appearance 06/19/23 06/19/23 06/19/23 10:44 10:44 16:10 RBC 2.51 L Hgb 8.1 L Hct 23.7 L Plt Count 124 L Lymphocytes # 0.6 L Lymphocytes # (Manual) INR Sodium 124 L 123 L Potassium Chloride 92 L Carbon Dioxide Creatinine 0.60 L Glucose Osmolality Calcium 7.8 L Phosphorus Iron TIBC % Saturation Transferrin Ferritin Total Bilirubin Delta Bilirubin Total Protein Albumin Vitamin B12 Urine Protein Urine Glucose (UA) Urine Ketones Ur Leukocyte Esterase Urine WBC Urine Bacteria Urine Mucus Ur Random Sodium Fluid Appearance 06/19/23 06/20/23 06/20/23 19:22 00:19 03:51 RBC Hgb Hct Plt Count Lymphocytes # Lymphocytes # (Manual) INR Sodium 123 L 125 L 126 L Potassium Chloride Carbon Dioxide Creatinine Glucose Osmolality Calcium Phosphorus Iron TIBC % Saturation Transferrin Ferritin Total Bilirubin Delta Bilirubin Total Protein Albumin Vitamin B12 Urine Protein Urine Glucose (UA) Urine Ketones Ur Leukocyte Esterase Urine WBC Urine Bacteria Urine Mucus Ur Random Sodium Fluid Appearance 06/20/23 06/20/23 06/20/23 06:55 06:55 11:18 RBC 2.43 L Hgb 7.7 L Hct 23.4 L Plt Count 137 L Lymphocytes # 0.7 L Lymphocytes # (Manual) INR Sodium 126 L 126 L Potassium Chloride 94 L Carbon Dioxide Creatinine 0.59 L Glucose Osmolality Calcium 8.0 L Phosphorus Iron TIBC % Saturation Transferrin Ferritin Total Bilirubin Delta Bilirubin Total Protein Albumin Vitamin B12 Urine Protein Urine Glucose (UA) Urine Ketones Ur Leukocyte Esterase Urine WBC Urine Bacteria Urine Mucus Ur Random Sodium Fluid Appearance 06/20/23 06/20/23 06/20/23 14:26 19:50 23:14 RBC Hgb Hct Plt Count Lymphocytes # Lymphocytes # (Manual) INR Sodium 126 L 125 L 125 L Potassium Chloride Carbon Dioxide Creatinine Glucose Osmolality Calcium Phosphorus Iron TIBC % Saturation Transferrin Ferritin Total Bilirubin Delta Bilirubin Total Protein Albumin Vitamin B12 Urine Protein Urine Glucose (UA) Urine Ketones Ur Leukocyte Esterase Urine WBC Urine Bacteria Urine Mucus Ur Random Sodium Fluid Appearance 06/21/23 06/21/23 06/21/23 03:43 06:45 06:45 RBC 2.30 L Hgb 7.0 L Hct 21.1 L Plt Count Lymphocytes # Lymphocytes # (Manual) INR Sodium 127 L 128 L Potassium 3.4 L Chloride 95 L Carbon Dioxide Creatinine Glucose Osmolality Calcium 8.0 L Phosphorus Iron TIBC % Saturation Transferrin Ferritin Total Bilirubin Delta Bilirubin Total Protein Albumin Vitamin B12 Urine Protein Urine Glucose (UA) Urine Ketones Ur Leukocyte Esterase Urine WBC Urine Bacteria Urine Mucus Ur Random Sodium Fluid Appearance 06/21/23 06/21/23 06/21/23 11:18 11:18 11:18 RBC Hgb Hct Plt Count Lymphocytes # Lymphocytes # (Manual) INR Sodium 128 L Potassium Chloride 94 L Carbon Dioxide Creatinine 0.64 L Glucose 103 H Osmolality Calcium 8.1 L Phosphorus 2.2 L Iron 19 L TIBC 167 L % Saturation 11.38 L Transferrin 119.0 L Ferritin 554.0 H Total Bilirubin Delta Bilirubin Total Protein Albumin Vitamin B12 2359.0 H Urine Protein Urine Glucose (UA) Urine Ketones Ur Leukocyte Esterase Urine WBC Urine Bacteria Urine Mucus Ur Random Sodium Fluid Appearance Assessment and Plan Assessment: * Recurrent falls, probably multifactorial due to reasons mentioned below. 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 We will check an MMA, folate, B6, zinc, copper levels. * Patient strongly concerned about abstaining from alcoholism. * PT OT evaluate gait. * Neurology will follow. Thank you for the consult.
--- NOTE | 2023-06-22 09:56 | P.PN ---
Subjective Patient is seen in follow-up for hyponatremia. Sodium level gradually improving. Oral intake better. Denies nausea or vomiting. Wants to go home today. Vital signs are stable. General: No acute distress. HEENT: Head exam is unremarkable. LUNGS: No audible rhonchi or wheezes. HEART: Rate and Rhythm are regular. ABDOMEN: Nontender. EXTREMITITES: No edema. Objective - Vital Signs Vital signs: Vital Signs Temp 98.7 F 06/22/23 07:39 Pulse 108 H 06/22/23 07:39 Resp 18 06/22/23 07:39 BP 119/83 06/22/23 07:39 Pulse Ox 100 06/22/23 07:39 FiO2 Intake & Output 06/21/23 06/22/23 06/22/23 18:59 06:59 18:59 Intake Total 2340 Output Total 1650 650 Balance 690 -650 Intake: Oral 1300 Other 1040 Output: Urine 1650 650 Other: Voiding Method External Catheter External Catheter External Catheter - Labs CBC & Chem 7: 06/21/23 06:45 06/21/23 20:03 Labs: Abnormal Lab Results - Last 24 Hours (Table) 06/21/23 06/21/23 06/21/23 Range/Units 06:45 06:45 11:18 RBC 2.30 L (4.40-5.60) X 10*6/uL Hgb 7.0 L (13.0-17.0) d/dL Hct 21.1 L (39.6-50.0) % Sodium 128 L 128 L (135-145) mmol/L Potassium 3.4 L (3.5-5.5) mmol/L Chloride 95 L 94 L (96-109) mmol/L Creatinine 0.64 L (0.66-1.25) mg/dL Glucose 103 H (74-99) mg/dL Calcium 8.0 L 8.1 L (8.7-10.3) mg/dL Phosphorus (2.5-4.5) mg/dL Iron (65-175) UG/DL TIBC (228-460) UG/DL % Saturation (15.00-50.00) Transferrin (204.0-354.0) mg/dL Ferritin (22.0-322.0) ng/mL Vitamin B12 (200.0-944.0) pg/mL 06/21/23 06/21/23 Range/Units 11:18 11:18 RBC (4.40-5.60) X 10*6/uL Hgb (13.0-17.0) d/dL Hct (39.6-50.0) % Sodium (135-145) mmol/L Potassium (3.5-5.5) mmol/L Chloride (96-109) mmol/L Creatinine (0.66-1.25) mg/dL Glucose (74-99) mg/dL Calcium (8.7-10.3) mg/dL Phosphorus 2.2 L (2.5-4.5) mg/dL Iron 19 L (65-175) UG/DL TIBC 167 L (228-460) UG/DL % Saturation 11.38 L (15.00-50.00) Transferrin 119.0 L (204.0-354.0) mg/dL Ferritin 554.0 H (22.0-322.0) ng/mL Vitamin B12 2359.0 H (200.0-944.0) pg/mL Assessment and Plan Plan: Assessment: 1. Hyponatremia secondary to beer potomania. Urine sodium less than 20 and uri ne osmolality 513. Status post [facility] this admission. Sodium level improving. TSH normal. 2. Alcohol abuse. 3. Benign hypertension. Controlled. 4. Hyperphosphatemia from poor intake. Replace. Plan: Encouraged oral intake. Maintain 1500 mL fluid restriction. Continue to hold lisinopril. Stop oral bicarbonate. Follow-up morning labs. If no improvement in sodium level, will add sodium chloride tab.
[2023-06-22 11:45] LABS: Magnesium 2.1 mg/dL (1.5-2.4); Phosphorus 2.1 mg/dL (2.4-5.1)
[2023-06-22 11:49] LABS: BUN/Creat Ratio 12.14 Ratio (12.00-20.00); Blood Urea Nitrogen 8.5 mg/dL (9.0-27.0); Calcium 8.1 mg/dL (8.7-10.3); Carbon Dioxide 24.3 mmol/L (21.6-31.8); Chloride 98 mmol/L (96-109); Glucose 101 mg/dL (70-110); Potassium 4.5 mmol/L (3.5-5.5); Sodium 131 mmol/L (135-145)
[2023-06-22] MEDS ORDERED: ONDANSETRON 4 MG/2 ML VIAL IVP PRN (12:57)
--- NOTE | 2023-06-22 14:41 | P.PN ---
Subjective Progress Note Date: 06/22/23 43 years old male with past medical history of hypertension, alcohol use disorder. Patient told me he also he has history of neuropathy for 2 years is not walking much, he uses a wheelchair but he continues is also a walker to go around the house. However he let his and almost of daily living activities like shopping. Also reports history of fall about 2 years ago twice with fracture including his ankle. Patient also mentioned he has liver disease and he seemed Dr. Mo before. Presents because of nausea vomiting and diarrhea 4 days as per ED note however pt states he was having diarrhea of one day duration Patient stated that he ask his to bring him to the hospital because he could not eat for 1.5 day. He said also has diarrhea with loose stool, he said he has 2 bowel movements of diarrhea prior to come into the hospital. No urinary symptoms, no headache dizziness weakness or new numbness. No chest pain dyspnea or coughing. On exam his abdomen significantly distended and has bilateral leg swelling which is not very much pitting Vitals reviewed showing tachycardia with heart rate 112, a trial on the vitals are stable. Labs reviewed, CBC is unremarkable other than anemia with hemoglobin 8.7. Sodium was low on admission 113, then 114 and 113 this morning. Most of BMP and liver enzymes were unremarkable. Bilirubin is 1.5 but AST and ALT are normal range. 06/19/2023 Patient is seen and evaluated in room at bedside in ICU; patient was transferred to ICU early in the morning due to worsening hyponatremia; patient was transferred to ICU and was started on 3% saline Vital signs are reviewed and are stable with temperature of 98.1, pulse 99, respirations 16 and blood pressure of 98/70 with O2 saturation of 100% Lab review shows WBC 4.4, hemoglobin 8.1, platelet count of 124, sodium of 124, potassium 3.8, BUN/creatinine of 12/0.6 -- Patient is more awake and alert this morning; nephrology on board and managing hyponatremia 06/20/2023 Patient is seen and evaluated with family at bedside; patient denies any spe cific complaints; family is concerned about nausea and poor oral intake; patient was discussed with nursing staff; patient was able to eat over 60% of breakfast; has been complaining of any nausea Vital signs are reviewed and stable with temperature of 98.1, pulse 100, respiration 20 and blood pressure of 99% on room air Lab review shows sodium of 126, potassium 3.8, BUN/creatinine stable at 12/0.59, WBC 4.3, hemoglobin 7.7, and platelet count of 137 -- Patient remains clinically stable; we will continue to monitor sodium levels closely; nephrology is following for hyponatremia - We will add PT/OT evaluation; discharge planning per PT OT recommendations and 1 sodium levels are stable 06/21. Patient seen and examined. at the bedside. Patient is complaining of numbness of lower extremities. Denies any loss of bowel or urinary incontinence. Will check CT head and vitamin B12 and folic acid levels 06/22. Patient seen and examined. Discussed with patient regarding rehab, at this time he is not sure if he wants to go to rehab. Sodium level improved to 131 REVIEW OF SYSTEMS: CONSTITUTIONAL: No fever, no malaise,. CARDIOVASCULAR: No chest pain, no palpitations, no syncope. PULMONARY: No shortness of breath, no cough, GASTROINTESTINAL: No diarrhea, no nausea, no vomiting, no abdominal pain. NEUROLOGICAL: No headaches, no weakness, PHYSICAL EXAMINATION: GENERAL: The patient is alert and oriented x3, not in any acute distress. Well developed, well nourished. HEENT: Pupils are round and equally reacting to light. EOMI. No scleral icterus. No conjunctival pallor. Normocephalic, atraumatic. No pharyngeal erythema. No thyromegaly. CARDIOVASCULAR: S1 and S2 present. No murmurs, rubs, or gallops. PULMONARY: Chest is clear to auscultation, no wheezing or crackles. ABDOMEN: Soft, nontender, nondistended, normoactive bowel sounds. No palpable organomegaly. MUSCULOSKELETAL: No joint swelling or deformity. EXTREMITIES: No cyanosis, clubbing, or pedal edema. NEUROLOGICAL: Gross neurological examination did not reveal any focal deficits. SKIN: No rashes. Assessment and plan Severe hyponatremia, present on admission Acute gastroenteritis Alcohol use disorder/ pending withdrawal Generalized weakness secondary to above Moderate to severe abdominal distention with bilateral leg swelling suspicious for ascites and fluid overload. Possible history of alcoholic liver disease, and possible cirrhosis. Hypertension Plan: Monitor vital signs Monitor CBC Encouraged oral intake. Mele 1500 mL fluid restriction. Continue to hold lisinopril. CIWA protocol and thiamine MRI brain ordered by neurology. Nephrology followed Neurology following PT and OT consulted Labs and medication were reviewed.. Continue same treatment. Continue with symptomatic treatment. Resume home medication. Monitor labs and vitals. DVT and GI prophylaxis. Further recommendations as per clinical course of the patient Dictation was produced using [employer] dictation software. please excuse any grammatical, word or spelling errors. Objective - Vital Signs Vital signs: Vital Signs Temp 98.5 F 06/22/23 12:35 Pulse 98 06/22/23 12:35 Resp 18 06/22/23 12:35 BP 120/77 06/22/23 12:35 Pulse Ox 100 06/22/23 12:35 FiO2 Intake & Output 06/21/23 06/22/23 06/22/23 18:59 06:59 18:59 Intake Total 2340 Output Total 1650 650 Balance 690 -650 Intake: Oral 1300 Other 1040 Output: Urine 1650 650 Other: Voiding Method External Catheter External Catheter External Catheter - Labs CBC & Chem 7: 06/21/23 06:45 06/22/23 06:04 Labs: Abnormal Lab Results - Last 24 Hours (Table) 06/19/23 06/21/23 06/22/23 Range/Units 10:44 11:18 06:04 Sodium 131 L (135-145) mmol/L BUN 8.5 L (9.0-27.0) mg/dL Calcium 8.1 L (8.7-10.3) mg/dL Phosphorus 2.1 L (2.4-5.1) mg/dL Iron 19 L (65-175) UG/DL TIBC 167 L (228-460) UG/DL % Saturation 11.38 L (15.00-50.00) Transferrin 119.0 L (204.0-354.0) mg/dL Ferritin 554.0 H (22.0-322.0) ng/mL Vitamin B12 2359.0 H (200.0-944.0) pg/mL RBC Folate 1,150 H (280 - 791) ng/mL
[2023-06-23] MEDS: prednisoLONE ACETATE 1% OPHTH DROPS 5 ML BTL RIGHT EYE SCH (08:13)
[2023-06-23] MEDS: FOLIC ACID 1 MG TAB PO SCH (08:14)
[2023-06-23] MEDS: POTAS-SOD-PHOS 278-164-250 MG 1 EACH PACKET PO SCH (08:14)
[2023-06-23] MEDS: HEPARIN SODIUM,PORCINE 5,000 UNIT/ML 1 ML VIAL SQ SCH ×2 (08:14→19:52)
[2023-06-23] MEDS: THIAMINE 100 MG TAB PO SCH (08:14)
[2023-06-23 08:59] LABS: BUN/Creat Ratio 11.57 Ratio (12.00-20.00); Blood Urea Nitrogen 8.1 mg/dL (9.0-27.0); Calcium 7.9 mg/dL (8.7-10.3); Carbon Dioxide 26.1 mmol/L (21.6-31.8); Chloride 96 mmol/L (96-109); Glucose 93 mg/dL (70-110); Magnesium 1.9 mg/dL (1.5-2.4); Potassium 3.9 mmol/L (3.5-5.5); Sodium 131 mmol/L (135-145)
--- NOTE | 2023-06-23 10:50 | P.PN ---
Subjective Patient is seen in follow-up for hyponatremia. Sodium level stable at 131 today. Oral intake gradually improving. Denies nausea or vomiting. Family present at bedside. Vital signs are stable. General: No acute distress. HEENT: Head exam is unremarkable. LUNGS: No audible rhonchi or wheezes. HEART: Rate and Rhythm are regular. ABDOMEN: Nontender. EXTREMITITES: No edema. Objective - Vital Signs Vital signs: Vital Signs Temp 98.2 F 06/23/23 07:03 Pulse 114 H 06/23/23 07:03 Resp 18 06/23/23 07:03 BP 115/76 06/23/23 07:03 Pulse Ox 100 06/23/23 07:03 FiO2 Intake & Output 06/22/23 06/23/23 06/23/23 18:59 06:59 18:59 Output Total 380 Balance -380 Output: Urine 380 Other: Voiding Method Urinal Urinal Urinal Diaper Diaper Diaper Incontinent External Catheter External Catheter # Voids 1 # Bowel Movements 1 - Labs CBC & Chem 7: 06/21/23 06:45 06/23/23 03:38 Labs: Abnormal Lab Results - Last 24 Hours (Table) 06/22/23 06/23/23 Range/Units 06:04 03:38 Sodium 131 L 131 L (135-145) mmol/L BUN 8.5 L 8.1 L (9.0-27.0) mg/dL BUN/Creatinine Ratio 11.57 L (12.00-20.00) Ratio Calcium 8.1 L 7.9 L (8.7-10.3) mg/dL Phosphorus 2.1 L (2.4-5.1) mg/dL Assessment and Plan Plan: Assessment: 1. Hyponatremia secondary to beer potomania. Urine sodium less than 20 and urine osmolality 513. Status post [facility] this admission. Sodium level impr shane. TSH normal. 2. Alcohol abuse. 3. Benign hypertension. Controlled. 4. Hypophosphatemia from poor intake. Being replaced. Plan: Encouraged oral intake. Maintain 1500 mL fluid restriction. Continue to hold lisinopril. Add sodium chloride tablets once daily.
[2023-06-23] MEDS: SODIUM CHLORIDE TAB 1 GM TAB PO SCH (11:42)
[2023-06-23 12:20] VITALS: BMI 26.2
--- NOTE | 2023-06-23 14:01 | MR ---
EXAMINATION TYPE: MR brain wo/w con DATE OF EXAM: 06/23/2023 1:46 PM CLINICAL INDICATION:Male, 43 years old with history of Weakness, falls, r/o CPM; Weakness, falls, R/O CPM. COMPARISON: 06/21/2023 TECHNIQUE: Multi planar, multi sequence imaging was performed through the brain including: T1, T2, In version recovery, susceptibility weighted imaging and gradient echo imaging and Diffusion weighted im aging. The patient was then given intravenous contrast and multi planar, T1 fat-saturation images wer e obtained. IV Contrast: 8.5 cc Gadavist FINDINGS: Cerebral atrophy with proportional dilation to the ventricular systems. No evidence for central ponti ne myelinolysis identified. The samy is within normal limits for signal intensity on all sequences. T he bergman-white junctions, ventricular system, basal cisterns appear unremarkable. Diffusion-weighted i maging shows no evidence of restricted diffusion to suggest acute/subacute infarct. Intracranial xavi rial flow voids are maintained. Midline structures show no abnormality. Minimal areas of high T2 sign al intensity are seen within the periventricular white matter. The susceptibility weighted images do not reveal any evidence for micro-hemorrhage. After administration of gadolinium, no abnormal enhance ment is seen. The bone marrow signal is within normal limits. Paranasal sinuses and mastoid air cells: No significant paranasal sinus disease. Visualized orbits: Orbital contents are intact. IMPRESSION: 1. No evidence of intracranial mass, acute/subacute infarct, or abnormal enhancement. 2. No evidence for central pontine myelinolysis identified. 3. Minimal Nonspecific white matter changes, likely related to small vessel ischemic disease
--- NOTE | 2023-06-23 20:26 | P.PN ---
Subjective Progress Note Date: 06/22/23 Patient denies any changes in his condition. Patient is laying comfortably in the bed. Patient's and multiple family members were present. Objective - Vital Signs Vital signs: Vital Signs Temp 98.5 F 06/22/23 12:35 Pulse 98 06/22/23 12:35 Resp 18 06/22/23 12:35 BP 120/77 06/22/23 12:35 Pulse Ox 100 06/22/23 12:35 FiO2 Intake & Output 06/22/23 06/22/23 06/23/23 06:59 18:59 06:59 Output Total 650 Balance -650 Output: Urine 650 Other: Voiding Method External Catheter Urinal Diaper Incontinent # Bowel Movements 1 - Exam Examination unchanged. Mentation normal. - Labs CBC & Chem 7: 06/21/23 06:45 06/23/23 03:38 Labs: Abnormal Lab Results - Last 24 Hours (Table) 06/19/23 06/21/23 06/22/23 Range/Units 10:44 11:18 06:04 Sodium 131 L (135-145) mmol/L BUN 8.5 L (9.0-27.0) mg/dL Calcium 8.1 L (8.7-10.3) mg/dL Phosphorus 2.1 L (2.4-5.1) mg/dL Iron 19 L (65-175) UG/DL TIBC 167 L (228-460) UG/DL % Saturation 11.38 L (15.00-50.00) Transferrin 119.0 L (204.0-354.0) mg/dL Ferritin 554.0 H (22.0-322.0) ng/mL Vitamin B12 2359.0 H (200.0-944.0) pg/mL RBC Folate 1,150 H (280 - 791) ng/mL Assessment and Plan Assessment: * Recurrent falls, probably multifactorial due to reasons mentioned below. 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 Await MMA, folate, B6, zinc, copper levels. * Patient strongly counseled about abstaining from alcoholism. * PT OT evaluate gait.
--- NOTE | 2023-06-23 20:30 | P.PN ---
Subjective Progress Note Date: 06/23/23 Patient denies any changes in his condition. Patient is laying comfortably in the bed. Patient's was also present today. Objective - Vital Signs Vital signs: Vital Signs Temp 97.7 F 06/23/23 11:50 Pulse 128 H 06/23/23 11:50 Resp 18 06/23/23 11:50 BP 119/82 06/23/23 11:50 Pulse Ox 100 06/23/23 11:50 FiO2 Intake & Output 06/23/23 06/23/23 06/24/23 06:59 18:59 06:59 Intake Total 1074 Output Total 380 Balance 694 Weight 87.543 kg Intake: Oral 1074 Output: Urine 380 Other: Voiding Method Urinal Urinal Diaper Diaper External Catheter External Catheter # Voids 1 - Exam Examination unchanged. Mentation normal. - Labs CBC & Chem 7: 06/24/23 07:59 06/24/23 05:50 Labs: Abnormal Lab Results - Last 24 Hours (Table) 06/22/23 06/23/23 Range/Units 06:04 03:38 Sodium 131 L (135-145) mmol/L BUN 8.1 L (9.0-27.0) mg/dL BUN/Creatinine Ratio 11.57 L (12.00-20.00) Ratio Calcium 7.9 L (8.7-10.3) mg/dL Copper 584 L (665-1480) ug/L Zinc 30 L (60-130) ug/dL Assessment and Plan Assessment: * Recurrent falls, probably multifactorial due to reasons mentioned below. 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 No evidence for central pontine myelino lysis. Minimal nonspecific white matter changes, likely related to small vessel ischemic disease. I personally reviewed MRI, agree with the findings. * B12 level is 2359, RBC folate is elevated 1150. Zinc level is 30(60-130), copper 584(665-1480). Patient will be started on flori replacement, may consider copper replacement. MMA 0.20 normal, Await B6 level. * Patient strongly counseled about abstaining from alcoholism. * Patient may need EMG and nerve conductions of bilateral lower limbs as outpatient. * PT OT evaluate gait. * Neurologically clear for discharge to nursing facility.
[2023-06-23] MEDS: ZINC SULFATE 220 MG CAP PO SCH (20:36)
--- NOTE | 2023-06-24 06:28 | P.PN ---
Subjective Progress Note Date: 06/23/23 43 years old male with past medical history of hypertension, alcohol use disorder. Patient told me he also he has history of neuropathy for 2 years is not walking much, he uses a wheelchair but he continues is also a walker to go around the house. However he let his and almost of daily living activities like shopping. Also reports history of fall about 2 years ago twice with fracture including his ankle. Patient also mentioned he has liver disease and he seemed Dr. Mo before. Presents because of nausea vomiting and diarrhea 4 days as per ED note however pt states he was having diarrhea of one day duration Patient stated that he ask his to bring him to the hospital because he co uld not eat for 1.5 day. He said also has diarrhea with loose stool, he said he has 2 bowel movements of diarrhea prior to come into the hospital. No urinary symptoms, no headache dizziness weakness or new numbness. No chest pain dyspnea or coughing. On exam his abdomen significantly distended and has bilateral leg swelling which is not very much pitting Vitals reviewed showing tachycardia with heart rate 112, a trial on the vitals are stable. Labs reviewed, CBC is unremarkable other than anemia with hemoglobin 8.7. Sodium was low on admission 113, then 114 and 113 this morning. Most of BMP and liver enzymes were unremarkable. Bilirubin is 1.5 but AST and ALT are normal range. 06/19/2023 Patient is seen and evaluated in room at bedside in ICU; patient was transferred to ICU early in the morning due to worsening hyponatremia; patient was transferred to ICU and was started on 3% saline Vital signs are reviewed and are stable with temperature of 98.1, pulse 99, respirations 16 and blood pressure of 98/70 with O2 saturation of 100% Lab review shows WBC 4.4, hemoglobin 8.1, platelet count of 124, sodium of 124, potassium 3.8, BUN/creatinine of 12/0.6 -- Patient is more awake and alert this morning; nephrology on board and managing hyponatremia 06/20/2023 Patient is seen and evaluated with family at bedside; patient denies any specific complaints; family is concerned about nausea and poor oral intake; patient was discussed with nursing staff; patient was able to eat over 60% of breakfast; has been complaining of any nausea Vital signs are reviewed and stable with temperature of 98.1, pulse 100, respiration 20 and blood pressure of 99% on room air Lab review shows sodium of 126, potassium 3.8, BUN/creatinine stable at 12/0.59, WBC 4.3, hemoglobin 7.7, and platelet count of 137 -- Patient remains clinically stable; we will continue to monitor sodium levels closely; nephrology is following for hyponatremia - We will add PT/OT evaluation; discharge planning per PT OT recommendations and 1 sodium levels are stable 06/21. Patient seen and examined. at the bedside. Patient is complaining of numbness of lower extremities. Denies any loss of bowel or urinary in continence. Will check CT head and vitamin B12 and folic acid levels 06/22. Patient seen and examined. Discussed with patient regarding rehab, at this time he is not sure if he wants to go to rehab. Sodium level improved to 131 06/23/2023 Patient is seen and evaluated in follow-up today currently just underwent MRI of the brain with nephrology and neurology following. Patient continues to be weak be evaluated by PT/OT therapy. Patient would likely benefit from rehab for continued strength and mobility. Sodium is improved at 130 today with nephrology following continued on fluid restrictions. patient reports was able to eat a little today and denied any nausea or vomiting. No reports of chest pain or shortness of breath. Encouraged oral intake as well as increased activity as tolerated. REVIEW OF SYSTEMS: CONSTITUTIONAL: No fever, no malaise,. CARDIOVASCULAR: No chest pain, no palpitations, no syncope. PULMONARY: No shortness of breath, no cough, GASTROINTESTINAL: No diarrhea, no nausea, no vomiting, no abdominal pain. NEUROLOGICAL: No headaches, reports of generalized weakness PHYSICAL EXAMINATION: GENERAL: The patient is alert and oriented x3, Well developed, well nourished. HEENT: Pupils are round and equally reacting to light. EOMI. No scleral icterus. No conjunctival pallor. Normocephalic, atraumatic. No pharyngeal erythema. No thyromegaly. CARDIOVASCULAR: S1 and S2 present. No murmurs, rubs, or gallops. PULMONARY: Chest is clear to auscultation, no wheezing or crackles. ABDOMEN: Soft, nontender, nondistended, normoactive bowel sounds. No palpable organomegaly. MUSCULOSKELETAL: No joint swelling or deformity. EXTREMITIES: No cyanosis, clubbing, or pedal edema. NEUROLOGICAL: Gross neurological examination did not reveal any focal deficits. SKIN: No rashes. Assessment: Severe hyponatremia, present on admission, improving 130 today Acute gastroenteritis Alcohol use disorder/ with acute alcohol withdrawal Generalized weakness secondary to above Moderate to severe abdominal distention with bilateral leg swelling suspicious for ascites and fluid overload. history of alcoholic liver disease, and possible cirrhosis. Hypertension GI prophylaxis DVT prophylaxis Full code Plan: Nephrology and neurology following and underwent MRI of the brain with no acute process noted Evaluated by physical therapy recommending rehab and initially patient was reluctant is agreeable with case management following as submitted and awaiting accepting facility Patient will likely require insurance authorization which has been submitted Continue fluid restrictions and follow-up on repeat labs Complete alcohol cessation discussed Encouraged increased activity as tolerated Encouraged oral intake Will discuss further with case management and discharge planning with possible discharge in the next 24-48 hours The impression and plan of care has been dictated by Destini Peterson, Nurse Practitioner as directed. Dr. Naomi MD I have performed a history and examination and MDM of this patient, discussed the same with the dictator, and agree with the dictator's assessment and plan as written ,documented as a scribe. Based on total visit time, I have performed more than 50% of the visit. Objective - Vital Signs Vital signs: Vital Signs Temp 98.2 F 06/23/23 07:03 Pulse 114 H 06/23/23 07:03 Resp 18 06/23/23 07:03 BP 115/76 06/23/23 07:03 Pulse Ox 100 06/23/23 07:03 FiO2 Intake & Output 06/22/23 06/23/23 06/23/23 18:59 06:59 18:59 Output Total 380 Balance -380 Output: Urine 380 Other: Voiding Method Urinal Urinal Urinal Diaper Diaper Diaper Incontinent External Catheter External Catheter # Voids 1 # Bowel Movements 1 - Labs CBC & Chem 7: 06/21/23 06:45 06/23/23 03:38 Labs: Abnormal Lab Results - Last 24 Hours (Table) 06/19/23 06/22/23 06/23/23 Range/Units 10:44 06:04 03:38 Sodium 131 L 131 L (135-145) mmol/L BUN 8.5 L 8.1 L (9.0-27.0) mg/dL BUN/Creatinine Ratio 11.57 L (12.00-20.00) Ratio Calcium 8.1 L 7.9 L (8.7-10.3) mg/dL Phosphorus 2.1 L (2.4-5.1) mg/dL RBC Folate 1,150 H (280 - 791) ng/mL
[2023-06-24 07:44] LABS: Basophils % (A) 0 %; Eosinophils # (A) 0.1 k/uL (0-0.7); Eosinophils % (A) 2 %; HCT 21.3 % (39.0-53.0); Lymphocytes # (A) 1.2 k/uL (1.0-4.8); Lymphocytes % (A) 16 %; MCH 31.5 pg (25.0-35.0); MCHC 32.9 g/dL (31.0-37.0); MCV 95.7 fL (80.0-100.0); Mean Platelet Volume 8.3; Monocytes # (A) 0.7 k/uL (0-1.0); Monocytes % (A) 10 %; Neutrophils # (A) 4.8 k/uL (1.3-7.7); Neutrophils % (A) 68 %; Platelet Count 167 k/uL (150-450); RBC 2.22 m/uL (4.30-5.90); RDW 13.4 % (11.5-15.5); WBC 7.1 k/uL (3.8-10.6)
[2023-06-24 08:04] LABS: Methylmalonic Acid 0.2 umol/L (<0.40)
[2023-06-24 08:57] LABS: BUN/Creat Ratio 10.86 Ratio (12.00-20.00); Blood Urea Nitrogen 7.6 mg/dL (9.0-27.0); Calcium 7.6 mg/dL (8.7-10.3); Carbon Dioxide 23.7 mmol/L (21.6-31.8); Chloride 97 mmol/L (96-109); Glucose 89 mg/dL (70-110); Magnesium 1.8 mg/dL (1.5-2.4); Phosphorus 3.1 mg/dL (2.4-5.1); Potassium 3.6 mmol/L (3.5-5.5); Sodium 131 mmol/L (135-145)
[2023-06-24] MEDS: THIAMINE 100 MG TAB PO SCH (10:06)
[2023-06-24] MEDS: ZINC SULFATE 220 MG CAP PO SCH (10:06)
[2023-06-24] MEDS: FOLIC ACID 1 MG TAB PO SCH (10:06)
[2023-06-24] MEDS: SODIUM CHLORIDE TAB 1 GM TAB PO SCH (10:07)
[2023-06-24] MEDS: prednisoLONE ACETATE 1% OPHTH DROPS 5 ML BTL RIGHT EYE SCH (10:07)
[2023-06-24] MEDS: HEPARIN SODIUM,PORCINE 5,000 UNIT/ML 1 ML VIAL SQ SCH ×2 (10:07→20:14)
--- NOTE | 2023-06-24 12:24 | P.PN ---
Subjective Patient is seen in follow-up for hyponatremia. Sodium level stable at 131 today. Oral intake fair. Denies nausea or vomiting. Family present at bedside. Vital signs are stable. General: No acute distress. HEENT: Head exam is unremarkable. LUNGS: No audible rhonchi or wheezes. HEART: Rate and Rhythm are regular. ABDOMEN: Nontender. EXTREMITITES: No edema. Objective - Vital Signs Vital signs: Vital Signs Temp 98.0 F 06/24/23 07:34 Pulse 102 H 06/24/23 07:34 Resp 18 06/24/23 07:34 BP 123/88 06/24/23 07:34 Pulse Ox 100 06/24/23 07:34 FiO2 Intake & Output 06/23/23 06/24/23 06/24/23 18:59 06:59 18:59 Intake Total 1074 400 Output Total 380 300 Balance 694 100 Weight 87.543 kg Intake: Oral 1074 400 Output: Urine 380 300 Other: Voiding Method Urinal Urinal Diaper Diaper External Catheter External Catheter # Voids 1 1 - Labs CBC & Chem 7: 06/24/23 07:59 06/24/23 05:50 Labs: Abnormal Lab Results - Last 24 Hours (Table) 06/22/23 06/24/23 06/24/23 Range/Units 06:04 05:50 07:59 RBC 2.22 L (4.30-5.90) m/uL Hgb 7.0 L (13.0-17.5) gm/dL Hct 21.3 L (39.0-53.0) % Sodium 131 L (135-145) mmol/L BUN 7.6 L (9.0-27.0) mg/dL BUN/Creatinine Ratio 10.86 L (12.00-20.00) Ratio Calcium 7.6 L (8.7-10.3) mg/dL Copper 584 L (665-1480) ug/L Zinc 30 L (60-130) ug/dL Crossmatch 06/24/23 Range/Units 10:10 RBC (4.30-5.90) m/uL Hgb (13.0-17.5) gm/dL Hct (39.0-53.0) % Sodium (135-145) mmol/L BUN (9.0-27.0) mg/dL BUN/Creatinine Ratio (12.00-20.00) Ratio Calcium (8.7-10.3) mg/dL Copper (665-1480) ug/L Zinc (60-130) ug/dL Crossmatch See Detail Assessment and Plan Plan: Assessment: 1. Hyponatremia secondary to beer potomania. Urine sodium less than 20 and urine osmolality 513. Status post [facility] this admission. Sodium level improve d. Stable at 131 today. TSH normal. 2. Alcohol abuse. 3. Benign hypertension. Controlled. 4. Hypophosphatemia from poor intake. Replaced. Better. Plan: Encouraged oral intake. Maintain 1500 mL fluid restriction. Continue to hold lisinopril. Maintain sodium chloride tablets once daily.
--- NOTE | 2023-06-25 04:52 | P.PN ---
Subjective Progress Note Date: 06/24/23 43 years old male with past medical history of hypertension, alcohol use disorder. Patient told me he also he has history of neuropathy for 2 years is not walking much, he uses a wheelchair but he continues is also a walker to go around the house. However he let his and almost of daily living activities like shopping. Also reports history of fall about 2 years ago twice with fracture including his ankle. Patient also mentioned he has liver disease and he seemed Dr. Mo before. Presents because of nausea vomiting and diarrhea 4 days as per ED note however pt states he was having diarrhea of one day duration Patient stated that he ask his to bring him to the hospital because he co uld not eat for 1.5 day. He said also has diarrhea with loose stool, he said he has 2 bowel movements of diarrhea prior to come into the hospital. No urinary symptoms, no headache dizziness weakness or new numbness. No chest pain dyspnea or coughing. On exam his abdomen significantly distended and has bilateral leg swelling which is not very much pitting Vitals reviewed showing tachycardia with heart rate 112, a trial on the vitals are stable. Labs reviewed, CBC is unremarkable other than anemia with hemoglobin 8.7. Sodium was low on admission 113, then 114 and 113 this morning. Most of BMP and liver enzymes were unremarkable. Bilirubin is 1.5 but AST and ALT are normal range. 06/19/2023 Patient is seen and evaluated in room at bedside in ICU; patient was transferred to ICU early in the morning due to worsening hyponatremia; patient was transferred to ICU and was started on 3% saline Vital signs are reviewed and are stable with temperature of 98.1, pulse 99, respirations 16 and blood pressure of 98/70 with O2 saturation of 100% Lab review shows WBC 4.4, hemoglobin 8.1, platelet count of 124, sodium of 124, potassium 3.8, BUN/creatinine of 12/0.6 -- Patient is more awake and alert this morning; nephrology on board and managing hyponatremia 06/20/2023 Patient is seen and evaluated with family at bedside; patient denies any specific complaints; family is concerned about nausea and poor oral intake; patient was discussed with nursing staff; patient was able to eat over 60% of breakfast; has been complaining of any nausea Vital signs are reviewed and stable with temperature of 98.1, pulse 100, respiration 20 and blood pressure of 99% on room air Lab review shows sodium of 126, potassium 3.8, BUN/creatinine stable at 12/0.59, WBC 4.3, hemoglobin 7.7, and platelet count of 137 -- Patient remains clinically stable; we will continue to monitor sodium levels closely; nephrology is following for hyponatremia - We will add PT/OT evaluation; discharge planning per PT OT recommendations and 1 sodium levels are stable 06/21. Patient seen and examined. at the bedside. Patient is complaining of numbness of lower extremities. Denies any loss of bowel or urinary in continence. Will check CT head and vitamin B12 and folic acid levels 06/22. Patient seen and examined. Discussed with patient regarding rehab, at this time he is not sure if he wants to go to rehab. Sodium level improved to 131 06/23/2023 Patient is seen and evaluated in follow-up today currently just underwent MRI of the brain with nephrology and neurology following. Patient continues to be weak be evaluated by PT/OT therapy. Patient would likely benefit from rehab for continued strength and mobility. Sodium is improved at 130 today with nephrology following continued on fluid restrictions. patient reports was able to eat a little today and denied any nausea or vomiting. No reports of chest pain or shortness of breath. Encouraged oral intake as well as increased activity as tolerated. 06/24/2023 Patient is seen in follow-up today being followed by nephrology. Sodium remains stable at 131 and will continue fluid restrictions and medications with follow- up labs. Patient hemoglobin is 7.0 today and will transfuse 1 unit of PRBC. Patient is afebrile with no reports of chest pain or shortness of breath. Patient continues with weakness and being evaluated for ECF. Patient has been accepted by [facility] and awaiting insurance authorization. Patient continues to have little appetite although is tolerating diet. Episodes of nausea with no vomiting. Patient encouraged increased activity as tolerated. REVIEW OF SYSTEMS: CONSTITUTIONAL: No fever, no malaise,. CARDIOVASCULAR: No chest pain, no palpitations, no syncope. PULMONARY: No shortness of breath, no cough, GASTROINTESTINAL: No diarrhea, reports occasional nausea, no vomiting, no abdominal pain. NEUROLOGICAL: No headaches, reports of generalized weakness PHYSICAL EXAMINATION: GENERAL: The patient is alert and oriented x3, Well developed, well nourished. HEENT: Pupils are round and equally reacting to light. EOMI. No scleral icterus. No conjunctival pallor. Normocephalic, atraumatic. No pharyngeal erythema. No thyromegaly. CARDIOVASCULAR: S1 and S2 present. No murmurs, rubs, or gallops. PULMONARY: Chest is clear to auscultation, no wheezing or crackles. ABDOMEN: Soft, nontender, nondistended, normoactive bowel sounds. No palpable organomegaly. MUSCULOSKELETAL: No joint swelling or deformity. EXTREMITIES: No cyanosis, clubbing, or pedal edema. NEUROLOGICAL: Gross neurological examination did not reveal any focal deficits. Diffusely weak SKIN: No rashes. Pale Assessment: Severe hyponatremia, present on admission, improving 131 today Acute gastroenteritis Alcohol use disorder/ with acute alcohol withdrawal Generalized weakness secondary to above Moderate to severe abdominal distention with bilateral leg swelling suspicious for ascites and fluid overload. Status post paracentesis history of alcoholic liver disease, and possible cirrhosis. Anemia, likely chronic secondary to alcoholic liver disease Hypertension GI prophylaxis DVT prophylaxis Full code Plan: Nephrology and neurology following and underwent MRI of the brain with no acute process noted Evaluated by physical therapy recommending rehab and initially patient was reluctant is agreeable with case management following and has been accepted awaiting insurance authorization Patient hemoglobin was 7 today and will transfuse 1 unit of PRBC and follow-up labs Continue fluid restrictions and follow-up on repeat labs to monitor electrolytes and kidney functions Complete alcohol cessation discussed Encouraged increased activity as tolerated Encouraged oral intake Possible discharge in the next 24-48 hours to ECF, awaiting insurance authorization at this time The impression and plan of care has been dictated by Destini Peterson, Nurse Practitioner as directed. Dr. Naomi MD I have performed a history and examination and MDM of this patient, discussed the same with the dictator, and agree with the dictator's assessment and plan as written ,documented as a scribe. Based on total visit time, I have performed more than 50% of the visit. Objective - Vital Signs Vital signs: Vital Signs Temp 98.0 F 06/24/23 07:34 Pulse 102 H 06/24/23 07:34 Resp 18 06/24/23 07:34 BP 123/88 06/24/23 07:34 Pulse Ox 100 06/24/23 07:34 FiO2 Intake & Output 06/23/23 06/24/23 06/24/23 18:59 06:59 18:59 Intake Total 1074 400 Output Total 380 300 Balance 694 100 Weight 87.543 kg Intake: Oral 1074 400 Output: Urine 380 300 Other: Voiding Method Urinal Urinal Diaper Diaper External Catheter External Catheter # Voids 1 1 - Labs CBC & Chem 7: 06/24/23 07:59 06/24/23 05:50 Labs: Abnormal Lab Results - Last 24 Hours (Table) 06/22/23 06/24/23 06/24/23 Range/Units 06:04 05:50 07:59 RBC 2.22 L (4.30-5.90) m/uL Hgb 7.0 L (13.0-17.5) gm/dL Hct 21.3 L (39.0-53.0) % Sodium 131 L (135-145) mmol/L BUN 7.6 L (9.0-27.0) mg/dL BUN/Creatinine Ratio 10.86 L (12.00-20.00) Ratio Calcium 7.6 L (8.7-10.3) mg/dL Copper 584 L (665-1480) ug/L Zinc 30 L (60-130) ug/dL
[2023-06-25] MEDS: HEPARIN SODIUM,PORCINE 5,000 UNIT/ML 1 ML VIAL SQ SCH (10:18)
[2023-06-25] MEDS: THIAMINE 100 MG TAB PO SCH (10:18)
[2023-06-25] MEDS: FOLIC ACID 1 MG TAB PO SCH (10:18)
[2023-06-25] MEDS: prednisoLONE ACETATE 1% OPHTH DROPS 5 ML BTL RIGHT EYE SCH (10:34)
[2023-06-25 11:07] LABS: Basophils # (A) 0.02 X 10*3/uL (0.00-0.10); Basophils % (A) 0.3 %; Eosinophils # (A) 0.09 X 10*3/uL (0.04-0.35); Eosinophils % (A) 1.2 %; HCT 21.9 % (39.6-50.0); HGB 7.4 d/dL (13.0-17.0); Lymphocytes # (A) 1.25 X 10*3/uL (0.90-5.00); Lymphocytes % (A) 16.5 %; MCH 30.7 pg (27.0-32.0); MCHC 33.8 d/dL (32.0-37.0); MCV 90.9 FL (80.0-97.0); Mean Platelet Volume 10.7 FL (9.5-12.2); Monocytes # (A) 0.83 X 10*3/uL (0.20-1.00); Monocytes % (A) 10.9 %; NRBC Per 100 WBC 0 X 10*3/uL (0.00-0.01); Neutrophils # (A) 5.26 X 10*3/uL (1.80-7.70); Neutrophils % (A) 69.4 %; Platelet Count 151 X 10*3/uL (140-440); RBC 2.41 X 10*6/uL (4.40-5.60); WBC 7.58 X 10*3/uL (4.50-10.00)
--- NOTE | 2023-06-25 12:21 | P.PN ---
Subjective Patient is seen in follow-up for hyponatremia. Sodium level stable at 131 yesterday. Oral intake improved. Family present at bedside. Vital signs are stable. General: No acute distress. HEENT: Head exam is unremarkable. LUNGS: No audible rhonchi or wheezes. HEART: Rate and Rhythm are regular. ABDOMEN: Nontender. EXTREMITITES: No edema. Objective - Vital Signs Vital signs: Vital Signs Temp 98.8 F 06/25/23 08:00 Pulse 99 06/25/23 10:38 Resp 18 06/25/23 08:40 BP 119/76 06/25/23 08:00 Pulse Ox 99 06/25/23 08:00 FiO2 Intake & Output 06/24/23 06/25/23 06/25/23 18:59 06:59 18:59 Intake Total 998 300 Balance 998 300 Intake: Oral 688 300 Blood Product 310 Rc As-1 Unit 310 [id number] Other: Voiding Method Urinal Urinal Urinal Diaper Diaper Diaper External Catheter # Voids 2 - Labs CBC & Chem 7: 06/25/23 06:39 06/24/23 05:50 Labs: Abnormal Lab Results - Last 24 Hours (Table) 06/24/23 06/25/23 Range/Units 10:10 06:39 RBC 2.41 L (4.40-5.60) X 10*6/uL Hgb 7.4 L (13.0-17.0) d/dL Hct 21.9 L (39.6-50.0) % Crossmatch See Detail Assessment and Plan Plan: Assessment: 1. Hyponatremia secondary to beer potomania. Urine sodium less than 20 and urine osmolality 513. Status post [facility] this admission. Sodium level impr shane. Stable at 131 as of yesterday. TSH normal. 2. Alcohol abuse. 3. Benign hypertension. Controlled. 4. Hypophosphatemia from poor intake. Replaced. Better. Plan: Encouraged oral intake. Maintain 1500 mL fluid restriction. Continue to hold lisinopril. Maintain sodium chloride tablets once daily. Repeat BMP and magnesium level 2-3 days postdischarge. Follow up outpatient in 1 week.
[2023-06-25 13:16] VITALS: BP 109/78; PULSE 112; RESP 16; TEMP 98.5
[2023-06-25] MEDS: ZINC SULFATE 220 MG CAP PO SCH (13:58)
[2023-06-25] MEDS: SODIUM CHLORIDE TAB 1 GM TAB PO SCH (13:58)
[2023-06-25 14:07] LABS: BUN/Creat Ratio 12.43 Ratio (12.00-20.00); Blood Urea Nitrogen 8.7 mg/dL (9.0-27.0); Calcium 7.4 mg/dL (8.7-10.3); Carbon Dioxide 24.4 mmol/L (21.6-31.8); Chloride 96 mmol/L (96-109); Glucose 89 mg/dL (70-110); Magnesium 1.8 mg/dL (1.5-2.4); Potassium 3.6 mmol/L (3.5-5.5); Sodium 129 mmol/L (135-145)
--- NOTE | 2023-06-25 14:33 | P.DS ---
Providers Date of admission: 06/16/23 16:02 Expected date of discharge: 06/25/23 Attending physician: Schuyler Ferro MD Consults: 06/16/23 16:06 Consult Physician Urgent Consulting Provider: Rosa Escalona Consult Reason/Comments: Hyponatremia Do you want consulting provider notified?: Yes 06/17/23 08:07 Consult Physician Routine Consulting Provider: Sharron Mo Consult Reason/Comments: possible alcoholic liver disease Do you want consulting provider notified?: Yes 06/21/23 12:47 Consult Physician Urgent Consulting Provider: Tabby Garcia Consult Reason/Comments: Bilateral lower extremity weakness and numbness Do you want consulting provider notified?: Yes Primary care physician: Stated None Hospital Course: Final diagnosis Severe hyponatremia, present on admission, improving 131 today Acute gastroenteritis Alcohol use disorder/ with acute alcohol withdrawal Generalized weakness secondary to above Moderate to severe abdominal distention with bilateral leg swelling suspicious for ascites and fluid overload. Status post paracentesis history of alcoholic liver disease, and possible cirrhosis. Anemia, likely chronic secondary to alcoholic liver disease Hypertension GI prophylaxis DVT prophylaxis Full code Discharge disposition Patient is being discharged in a stable condition with guarded prognosis to [facility]. Patient will follow-up with Dr. Griffin in the outpatient setting upon discharge. Patient is to also follow-up with nephrology as well as GI outpatient in one week as scheduled. Patient have repeat labs of CBC, CMP, magnesium in 2-3 days. Total time taken is greater than 35 minutes. Hospital course This is a 43-year-old male who was recently admitted with alcohol intoxication along with anemia along with significant hyponatremia. Patient was initially at ICU briefly to a sodium level less than 120 maintained on 3% hypertonic solution. Patient is also status post [facility] with nephrology following closely. Sodium is 131 and nephrology recommending repeat labs in the next 2-3 days and close outpatient follow-up along with continuing on sodium chloride tabs as well as fluid restrictions of 1500 mL's per day. Patient also with significant beer potomania and alcoholic cirrhosis requiring paracentesis. Patient does follow with Dr. Chely MURILLO in the outpatient setting and will need close outpatient follow-up. Complete alcohol cessation has been discussed. Patient with significant weakness and difficulty ambulating has been evaluated by physical therapy recommending rehab and patient is now agreeable. Patient will be going to [facility] today and insurance authorization has been obtained. Please refer to other consultation notes for further HPI. Hemoglobin today is 7.4 status post 1 unit of PRBC yesterday. Again recommend repeat labs and close outpatient follow-up with nephrology in the outpatient setting. Currently no reports of chest pain, shortness of breath, or palpitations. Patient is afebrile. No reports of nausea or vomiting and patient is tolerating diet. Patient will be going to [facility] today. Guarded prognosis and high risk for readmission given patient's noncompliance, poor social situation and support as well as continued alcohol use. Physical exam: Gen: This is a 43-year-old male who is awake, alert and oriented 3, elderly- appearing, ill-appearing HEENT: Head is atraumatic, normocephalic. Pupils equal, round. Sclerae is anicteric. NECK: Supple. No JVD. No lymphadenopathy. No thyromegaly. LUNGS: Clear to auscultation. No wheezes or rhonchi. No intercostal retractions. HEART: Regular rate and rhythm. No murmur. ABDOMEN: Soft. Bowel sounds are present. No masses. No tenderness. EXTREMITIES: No pedal edema. No calf tenderness. NEUROLOGICAL: Patient is awake, alert and oriented x3. Cranial nerves 2 through 12 are grossly intact. Diffusely weak Please refer to medication reconciliation sheet for a list of medications. The impression and plan of care has been dictated by Destini Peterson, Nurse Practitioner as directed. Dr. Mert MD I have performed a history and examination and MDM of this patient, discussed the same with the dictator, and agree with the dictator's assessment and plan as written ,documented as a scribe. Based on total visit time, I have performed more than 50% of the visit. Patient Condition at Discharge: Fair Plan - Discharge Summary New Discharge Prescriptions: New Heparin Sodium,Porcine (1 ml) [Heparin Sodium] 5,000 unit SQ Q12HR each Sodium Chloride Tab 1 gm PO DAILY tab Thiamine [Vitamin B-1] 100 mg PO DAILY tab Zinc Sulfate [Orazinc] 220 mg PO DAILY cap Continue Folic Acid 1 mg PO DAILY prednisoLONE ACETATE 1% OPHTH [Pred Forte 1%] 1 drop RIGHT EYE DAILY Discontinued lisinopriL 40 mg PO DAILY Discharge Medication List Folic Acid 1 mg PO DAILY 09/27/23 [History] prednisoLONE ACETATE 1% OPHTH [Pred Forte 1%] 1 drop RIGHT EYE DAILY 06/16/23 [History] Heparin Sodium,Porcine (1 ml) [Heparin Sodium] 5,000 unit SQ Q12HR each 06/25/23 [Rx] Sodium Chloride Tab 1 gm PO DAILY tab 06/25/23 [Rx] Thiamine [Vitamin B-1] 100 mg PO DAILY tab 06/25/23 [Rx] Zinc Sulfate [Orazinc] 220 mg PO DAILY cap 06/25/23 [Rx] Follow up Appointment(s)/Referral(s): [facility] [REFERRING] - [facility] [NON-STAFF] - Ambulatory/Diagnostic Orders: Complete Blood Count w/diff [LAB.AMB] Time Frame: 3 Days, Location: None Selected Activity/Diet/Wound Care/Special Instructions: Patient is going to [email or web address] [email or web address] Activity as tolerated Continue fluid restrictions of 1500 mL per day Continue to hold lisinopril for now Follow-up on GI outpatient along with nephrology Repeat CBC, CMP, magnesium in 2-[address] Elvira Griffin, patient sees Nori WILLETT out of [place] Discharge/Stand Alone Forms: AA Meetings [place], Who Do I Call?, Community Resources, Inp Substance Abuse Facilities, Personal Medical Information Specialist Discharge Disposition: TRANSFER TO SNF/ECF
[2023-06-25] MEDS ORDERED: PYRIDOXINE 50 MG TAB PO SCH (16:00)
--- NOTE | 2023-06-25 20:44 | P.PN ---
Subjective Progress Note Date: 06/25/23 Patient denies any changes in his condition. Patient is sitting comfortably in the recliner. Patient's and patient's aunt were also present. Objective - Vital Signs Vital signs: Vital Signs Temp 98.5 F 06/25/23 13:05 Pulse 112 H 06/25/23 13:05 Resp 16 06/25/23 13:05 BP 109/78 06/25/23 13:05 Pulse Ox 95 06/25/23 13:05 FiO2 Intake & Output 06/24/23 06/25/23 06/25/23 18:59 06:59 18:59 Intake Total 998 300 Balance 998 300 Intake: Oral 688 300 Blood Product 310 Rc As-1 Unit 310 [id number] Other: Voiding Method Urinal Urinal Urinal Diaper Diaper Diaper External Catheter # Voids 2 - Exam Examination unchanged. Mentation normal. - Labs CBC & Chem 7: 06/25/23 06:39 06/25/23 06:39 Labs: Abnormal Lab Results - Last 24 Hours (Table) 06/22/23 06/25/23 06/25/23 Range/Units 06:04 06:39 06:39 RBC 2.41 L (4.40-5.60) X 10*6/uL Hgb 7.4 L (13.0-17.0) d/dL Hct 21.9 L (39.6-50.0) % Sodium 129 L (135-145) mmol/L BUN 8.7 L (9.0-27.0) mg/dL Calcium 7.4 L (8.7-10.3) mg/dL Vitamin B6 <2 L (5-50) ug/L Assessment and Plan Assessment: * Recurrent falls, probably multifactorial due to reasons mentioned below. 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 Plan: * MRI of the brain revealed no evidence of intracranial mass, acute/subacute infarct or abnormal enhancement. No evidence for central pontine myelinolysis. Minimal nonspecific white matter changes, likely related to small vessel ischemic disease. I personally reviewed MRI, agree with the findings. * B12 level is 2359, RBC folate is elevated 1150. Zinc level is 30(60-130), copper 584(665-1480). Patient will be started on flori replacement, may consider copper replacement. MMA 0.20 normal, B6 level is very low < 2. Pat ient will be started on vitamin B6 50 mg daily. Patient also recommended to take multivitamins, with copper. * Patient strongly counseled about abstaining from alcoholism. * Patient may need EMG and nerve conductions of bilateral lower limbs as outpatient. * PT OT evaluate gait. * Neurologically clear for discharge to nursing facility.
== END 2023-06-25 16:10 | DRG 426 ==
LOC: EC 11:44 → 3SCARD 16:02 → 2SICU 06-19 08:05 → 5NMEDONC 06-20 01:18
PROVIDERS: ADMIT Internal Medicine; ATTEND Internal Medicine
PROC: 0W9G3ZZ Drainage of Peritoneal Cavity, Percutaneous Approach (ICD-10-PCS; principal; 2023-06-17)
PROC: 30233J1 Transfusion of Nonautologous Serum Albumin into Peripheral Vein, Percutaneous Approach (ICD-10-PCS; 2023-06-17)
PROC: HZ2ZZZZ Detoxification Services for Substance Abuse Treatment (ICD-10-PCS; 2023-06-17)
PROC: 30233N1 Transfusion of Nonautologous Red Blood Cells into Peripheral Vein, Percutaneous Approach (ICD-10-PCS; 2023-06-24)
DX: E22.2 Syndrome of inappropriate secretion of antidiuretic hormone (principal); K70.31 Alcoholic cirrhosis of liver with ascites; K76.6 Portal hypertension; G62.1 Alcoholic polyneuropathy; F10.239 Alcohol dependence with withdrawal, unspecified; F10.229 Alcohol dependence with intoxication, unspecified; E87.20 Acidosis, unspecified; D63.8 Anemia in other chronic diseases classified elsewhere; I10 Essential (primary) hypertension; E87.70 Fluid overload, unspecified; E86.1 Hypovolemia; F17.220 Nicotine dependence, chewing tobacco, uncomplicated; S80.02XA Contusion of left knee, initial encounter; S80.01XA Contusion of right knee, initial encounter; S80.12XA Contusion of left lower leg, initial encounter; S80.11XA Contusion of right lower leg, initial encounter; K52.9 Noninfective gastroenteritis and colitis, unspecified; R29.6 Repeated falls; E63.9 Nutritional deficiency, unspecified; E61.0 Copper deficiency; E53.1 Pyridoxine deficiency; Z60.9 Problem related to social environment, unspecified; Z91.199 Patient's noncompliance with other medical treatment and regimen due to unspecified reason; Z91.81 History of falling; Z28.310 Unvaccinated for COVID-19; E60 Dietary zinc deficiency; M62.81 Muscle weakness (generalized); W19.XXXA Unspecified fall, initial encounter; Y90.1 Blood alcohol level of 20-39 mg/100 ml; Z79.899 Other long term (current) drug therapy
CPT/HCPCS: 36415; 49083; 70450; 70553; 76705; 80048; 80053; 80076; 80320; 81001; 82042; 82525; 82607; 82728; 82747; 83540; 83550; 83690; 83735; 83921; 83930; 83935; 84100; 84132; 84157; 84207; 84295; 84300; 84443; 84630; 85025; 85610; 86850; 86900; 86901; 86920; 88108; 88305; 89050; 96361; 96365; 96372; 96375; 96376; 99285